=== PATIENT | female | born 1945 | race Caucasian/White ===

== ENCOUNTER 2023-04-05 14:47 | Emergency (ER) | payer MEDICARE, BC, SELFPAY ==
[2023-04-05] VITALS (10 sets, daily range): BP systolic 133–143; BP diastolic 61–71; PULSE 60–96; RESP 13–24; TEMP 36.6; O2SAT 96–99; BMI 20.8
--- NOTE | 2023-04-05 15:01 | ED_ITS ---
HPI - SOB/Dyspnea General Chief Complaint: Shortness of Breath/Dyspnea Stated Complaint: SHORTNESS OF BREATH Time Seen by Provider: 04/05/23 14:55 Source: patient Mode of arrival: walk-in Limitations: no limitations History of Present Illness HPI Narrative: this patient's here for evaluation of fatigue and malaise aches and pains cough right sided chest pain. Symptoms started yesterday. She's had two vaccines but no blisters for Covid. She doesn't know she is running a fever. She does not have nausea vomiting or diarrhea. Does not have a sore throat. She lives alone but is here with her daughter. He is not currently on any antibiotics. She does not have any sputum production yet. She is not using tobacco products. She has a history of some reactive airway disease and used her albuterol inhaler once today. Her vital signs are as noted here with no acute shortness of breath or hypoxemia noted. She took some Tylenol and the aches and pains went away. She's not been around anyone with Covid that she knows of. This document has been composed with a new electronic medical record and [employer] voice recognition system. This document may not fully inaccurately reflect the entirety of the patient encounter. Related Data Allergies Allergy/AdvReac Type Severity Reaction Status Date / Time amoxicillin [From Augmentin] Allergy Intermediate Verified 04/05/23 14:55 cephalexin [From Keflex] Allergy Intermediate Verified 04/05/23 14:55 clavulanic acid Allergy Intermediate Verified 04/05/23 14:55 [From Augmentin] diclofenac [From Voltaren] Allergy Intermediate Verified 04/05/23 14:55 fenoprofen [From Nalfon] Allergy Intermediate Verified 04/05/23 14:55 ketorolac [From Toradol] Allergy Intermediate Verified 04/05/23 14:55 NSAIDS (Non-Steroidal Allergy Intermediate Verified 04/05/23 14:55 Anti-Inflamma Penicillins Allergy Intermediate Verified 04/05/23 14:55 Sulfa (Sulfonamide Allergy Intermediate Verified 04/05/23 14:55 Antibiotics) Exam Narrative Exam Narrative: awake alert does not appear acutely ill. Vital signs are noted. She is a good historian. Constitutional skin is warm and dry she's not diaphoretic or clammy. HEENT shows no conjunctivitis no scleral icterus no pallor or evidence of anemia. Respiratory her lungs were clear with no wheezes rales or rhonchi. Cardiovascular shows no clicks rubs snaps or murmurs. Extremities show no edema or ropiness. There is good peripheral perfusion. Constitutional Vital Signs, click to edit/add: Last Vital Signs Temp 98 F 04/05/23 14:49 Pulse 91 H 04/05/23 16:10 Resp 17 04/05/23 16:10 BP 140/63 04/05/23 16:00 Pulse Ox 99 04/05/23 15:35 O2 Del Method Room Air 04/05/23 15:35 Course Vital Signs Vital signs: Vital Signs Temperature 98 F 04/05/23 14:49 Pulse Rate 60 04/05/23 14:49 Respiratory Rate 20 04/05/23 14:49 Blood Pressure 138/71 04/05/23 14:49 Pulse Oximetry 96 04/05/23 14:49 Oxygen Delivery Method Room Air 04/05/23 14:49 Temperature 98 F 04/05/23 14:49 Pulse Rate 91 H 04/05/23 16:10 Respiratory Rate 17 04/05/23 16:10 Blood Pressure 140/63 04/05/23 16:00 Pulse Oximetry 99 04/05/23 15:35 Oxygen Delivery Method Room Air 04/05/23 15:35 MDM - SOB/Dyspnea MDM Narrative Medical decision making narrative: the patient's chest x-ray was normal. Her respiratory panel is actually not negative for any acute pathogens as well. I believe she has a uncomplicated upper respiratory infection. She is to follow-up with her primary care doctor. Lab Data Labs: Lab Results 04/05/23 Range/Units 15:15 WBC 8.0 (4.0-11.0) 10^3/uL RBC 4.08 L (4.20-5.40) 10^6/uL Hgb 12.8 (12.0-16.0) g/dL Hct 37.8 (36.0-48.0) % MCV 92.6 (81.0-99.0) fL MCH 31.4 (26.7-34.0) pg MCHC 33.9 (29.9-35.2) g/dL RDW 12.7 (11.0-15.0) % Plt Count 233 (150-450) 10^3/uL MPV 10.2 (9.5-13.5) fL Neut % (Auto) 75.5 H (43.0-75.0) % Lymph % (Auto) 18.7 L (20.5-60.0) % [place] % (Auto) 4.7 (1.7-12.0) % Eos % (Auto) 0.2 L (0.9-7.0) % Baso % (Auto) 0.5 (0.2-2.0) % Neut # (Auto) 6.1 (1.4-6.5) 10^3/uL Lymph # (Auto) 1.5 (1.2-3.8) 10^3/uL [place] # (Auto) 0.4 (0.3-0.8) 10^3/uL Eos # (Auto) 0.0 (0.0-0.7) 10^3/uL Baso # (Auto) 0.0 (0.0-0.1) 10^3/uL Abs Immat Gran (auto) 0.03 (0.00-0.03) 10^3/uL Imm/Tot Granulo (auto) 0.4 (0.0-0.5) % D-Dimer 0.24 (<=0.59) mg/L FEU Sodium 138 (136-145) mmol/L Potassium 3.5 (3.5-5.1) mmol/L Chloride 106 (98-107) mmol/L Carbon Dioxide 24.6 (21.0-32.0) mmol/L Anion Gap 10.9 BUN 18.0 (7.0-18.0) mg/dL Creatinine 1.15 H (0.55-1.02) mg/dL Est GFR ( Amer) 55 L (>=60) Est GFR (Non-Af Amer) 46 L (>=60) BUN/Creatinine Ratio 15.7 Glucose 186 H (74-106) mg/dL Calcium 9.3 (8.5-10.1) mg/dL Total Bilirubin 0.4 (0.2-1.0) mg/dL AST 19 (15-37) U/L ALT 28 (14-59) U/L Alkaline Phosphatase 81 (46-116) U/L NT-Pro-B Natriuret Pep 272.0 (<=1800.0) pg/mL Total Protein 7.1 (6.4-8.2) g/dL Albumin 3.8 (3.4-5.0) g/dL Globulin 3.3 g/dL Albumin/Globulin Ratio 1.2 Adenovirus (PCR) Not detected (NOT DETECTE) C. pneumoniae DNA (PCR) Not detected (NOT DETECTE) Coronavirus Type OC43 Not detected (NOT DETECTE) Coronavirus Type HKU1 Not detected (NOT DETECTE) Coronavirus Type 229E Not detected (NOT DETECTE) Coronavirus Type NL63 Not detected (NOT DETECTE) Human Metapneumovir PCR Not detected (NOT DETECTE) M. pneumoniae (PCR) Not detected (NOT DETECTE) Parainfluenza PCR Not detected (NOT DETECTE) Parainfluenza 2 (PCR) Not detected (NOT DETECTE) Parainfluenza 3 (PCR) Not detected (NOT DETECTE) Parainfluenza 4 (PCR) Not detected (NOT DETECTE) RSV (RT-PCR) Not detected (NOT DETECTE) Entero/Rhino (PCR) Not detected (NOT DETECTE) SARS-CoV-2 (PCR) Not detected (NOT DETECTE) Bordetella pertussis (PCR) Not detected (NOT DETECTE) B parapertussis DNA PCR Not detected (NOT DETECTE) Influenza Type A (PCR) Not detected (NOT DETECTE) Influenza Type B (PCR) Not detected (NOT DETECTE) Discharge Plan Discharge Chief Complaint: Shortness of Breath/Dyspnea Clinical Impression: Acute upper respiratory infection Patient Disposition: Home, Self-Care Time of Disposition Decision: 17:00 Additional Instructions: may use Tylenol or ibuprofen for fever control. [id number] Mucinex. Follow up with primary care doctor in several days if not improved Stand Alone Forms: Portal Instructions Referrals: VERÓNICA HELLER [Primary Care Provider] - 1 week
--- NOTE | 2023-04-05 15:04 | XR_ITS ---
The [address] [address] Patient Name: ABIOLA VILLEGAS MRN: [id number] date: 1945 Sex: F Assigned Patient Location: ER Current Patient Location: ER Accession/Order Number: [id number] Exam Date: 04/05/2023 15:18 Report Date: 04/05/2023 15:30 At the request of: EMILIA THOMPSON Procedure: XR chest 1V EXAMINATION: XR chest 1V HISTORY: Chest pain COMPARISON: Portable chest 11/19/2022 TECHNIQUE: Portable chest FINDINGS: The lung parenchyma is free of consolidation or infiltrate. No pneumothorax or pleural effusion. The cardiac, mediastinal and hilar contours are normal. The visualized osseous structures exhibit no gross abnormality. XR/XR chest 1V IMPRESSION: No acute cardiopulmonary abnormality. Electronically authenticated by: COLLEEN OLIVAREZ Date: 04/05/2023 15:30
--- NOTE | 2023-04-05 15:04 | ECG_ITS ---
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
[2023-04-05 15:21] LABS: Adenovirus NOT DETECTED (NOT DETECTE); Bordetella parapertussis NOT DETECTED (NOT DETECTE); Coronavirus 229E NOT DETECTED (NOT DETECTE); Coronavirus HKU1 NOT DETECTED (NOT DETECTE); Coronavirus NL63 NOT DETECTED (NOT DETECTE); Coronavirus OC43 NOT DETECTED (NOT DETECTE); Human Metapneumovirus NOT DETECTED (NOT DETECTE); Human Rhinovirus/Enterovirus NOT DETECTED (NOT DETECTE); Influenza A NOT DETECTED (NOT DETECTE); Influenza B NOT DETECTED (NOT DETECTE); Mycoplasma pneumoniae NOT DETECTED (NOT DETECTE); Parainfluenza Virus 1 NOT DETECTED (NOT DETECTE); Parainfluenza Virus 2 NOT DETECTED (NOT DETECTE); Parainfluenza Virus 3 NOT DETECTED (NOT DETECTE); Parainfluenza Virus 4 NOT DETECTED (NOT DETECTE); Respiratory Syncytial Virus NOT DETECTED (NOT DETECTE); SARS-CoV-2 NOT DETECTED (NOT DETECTE)
[2023-04-05 15:22] LABS: Basophils Percent Auto 0.5 % (0.2-2.0); Eosinophils Percent Auto 0.2 % (0.9-7.0); Hematocrit 37.8 % (36.0-48.0); Hemoglobin 12.8 g/dL (12.0-16.0); Immature Granulocytes Abs Auto 0.03 10^3/uL (0.00-0.03); Immature Granulocytes Pct Auto 0.4 % (0.0-0.5); Lymphocytes Absolute Auto 1.5 10^3/uL (1.2-3.8); Lymphocytes Percent Auto 18.7 % (20.5-60.0); Mean Corpuscular HGB Conc 33.9 g/dL (29.9-35.2); Mean Corpuscular Hemoglobin 31.4 pg (26.7-34.0); Mean Corpuscular Volume 92.6 fL (81.0-99.0); Mean Platelet Volume 10.2 fL (9.5-13.5); Monocytes Absolute Auto 0.4 10^3/uL (0.3-0.8); Monocytes Percent Auto 4.7 % (1.7-12.0); Neutrophils Absolute Auto 6.1 10^3/uL (1.4-6.5); Neutrophils Percent Auto 75.5 % (43.0-75.0); Platelet Count 233 10^3/uL (150-450); Red Blood Count 4.08 10^6/uL (4.20-5.40); Red Cell Distribution Width 12.7 % (11.0-15.0)
[2023-04-05 15:35] LABS: Alanine Aminotransferase 28 U/L (14-59); Albumin Globulin Ratio 1.2; Albumin Level 3.8 g/dL (3.4-5.0); Alkaline Phosphatase 81 U/L (46-116); Anion Gap 10.9; Aspartate Amino Transferase 19 U/L (15-37); BUN Creatinine Ratio 15.7; Bilirubin Total 0.4 mg/dL (0.2-1.0); Calcium 9.3 mg/dL (8.5-10.1); Carbon Dioxide 24.6 mmol/L (21.0-32.0); Chloride 106 mmol/L (98-107); Estimated GFR (African America 55 (>=60); Estimated GFR (Non-African Ame 46 (>=60); Globulin 3.3 g/dL; Glucose 186 mg/dL (74-106); Potassium 3.5 mmol/L (3.5-5.1); Sodium 138 mmol/L (136-145); Total Protein 7.1 g/dL (6.4-8.2)
[2023-04-05] MEDS: IPRATROPIUM/ALBUTEROL SULFATE 3 ML AMPUL.NEB IH (15:35)
[2023-04-05 15:37] LABS: D Dimer 0.24 mg/L FEU (<=0.59)
== END 2023-04-05 17:17 | disposition home or self-care (01) ==
PROVIDERS: Emergency Provider Emergency Medicine Emergency Medical Services; PCP Internal Medicine
DX: J06.9 Acute upper respiratory infection, unspecified (principal); Z20.822 Contact with and (suspected) exposure to COVID-19; R06.02 Shortness of breath
CPT/HCPCS: 0202U; 36415; 71045; 80053; 83880; 85025; 85378; 93005; 94640; 99285

== ENCOUNTER 2024-03-27 10:19 | Emergency (ER) | payer MEDICARE, BC, SELFPAY ==
[2024-03-27 10:24] VITALS: BP 153/79; PULSE 97; TEMP 37.1; O2SAT 98; BMI 20.4
--- NOTE | 2024-03-27 10:36 | XR_ITS ---
The [address] [address] Patient Name: ABIOLA VILLEGAS MRN: [id number] date: 1945 Sex: F Assigned Patient Location: ED.MAIN Current Patient Location: ED.MAIN Accession/Order Number: [id number] Exam Date: 03/27/2024 11:15 Report Date: 03/27/2024 13:04 At the request of: GILMA DE JESUS Procedure: XR chest 1V EXAM: XR chest 1V 03/27/2024 COMPARISON STUDY: AP chest 04/05/2023. HISTORY: shortness of breath FINDINGS: The cardiomediastinal contours are stable. Heart size is top normal. No dense consolidation, effusion, edema, failure, pneumothorax or acute osseous change suspected in the interval. XR/XR chest 1V IMPRESSION: No acute cardiopulmonary process suspected in the interval. Electronically authenticated by: JOO FRASER Date: 03/27/2024 13:04
--- NOTE | 2024-03-27 10:43 | ECG_ITS ---
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
--- NOTE | 2024-03-27 10:45 | ED.GENADUL1 ---
HPI HPI - General Adult General Chief complaint: Weakness Stated complaint: SHORTNESS OF BREATH Time Seen by Provider: 03/27/24 10:23 Source: patient Mode of arrival: walk-in Limitations: no limitations Related Data Home Medications ?Medication ?Instructions ?Recorded ?Confirmed albuterol 90 mcg/actuation aerosol 90 mcg inhalation PRN PRN 03/27/24 03/27/24 inhaler shortness of breath fluticasone furoate 100 1 inh inhalation DAILY 03/27/24 03/27/24 mcg-vilanterol 25 mcg/dose inhalation powder (Breo Ellipta) Previous Rx's ?Medication ?Instructions ?Recorded doxycycline hyclate 100 mg capsule 100 mg PO BID 7 days #14 caps 03/27/24 Allergies Allergy/AdvReac Type Severity Reaction Status Date / Time amoxicillin [From Augmentin] Allergy Intermediate Verified 04/05/23 14:55 cephalexin [From Keflex] Allergy Intermediate Verified 04/05/23 14:55 clavulanic acid Allergy Intermediate Verified 04/05/23 14:55 [From Augmentin] diclofenac [From Voltaren] Allergy Intermediate Verified 04/05/23 14:55 fenoprofen [From Nalfon] Allergy Intermediate Verified 04/05/23 14:55 ketorolac [From Toradol] Allergy Intermediate Verified 04/05/23 14:55 NSAIDS (Non-Steroidal Allergy Intermediate Verified 04/05/23 14:55 Anti-Inflamma Penicillins Allergy Intermediate Verified 04/05/23 14:55 Sulfa (Sulfonamide Allergy Intermediate Verified 04/05/23 14:55 Antibiotics) Opioid HPI Opioid Management Most Recent Opioid Data: No Data to Display Exam Constitutional Vital Signs, click to edit/add: Last Vital Signs Temp 98.7 F 03/27/24 10:24 Pulse 97 H 03/27/24 10:24 Resp 18 03/27/24 10:24 BP 153/79 H 03/27/24 10:24 Pulse Ox 98 03/27/24 10:24 O2 Del Method Room Air 03/27/24 10:24 Course Vital Signs Vital signs: Vital Signs Temperature 98.7 F 03/27/24 10:24 Pulse Rate 97 H 03/27/24 10:24 Respiratory Rate 18 03/27/24 10:24 Blood Pressure 153/79 H 03/27/24 10:24 Pulse Oximetry 98 08/17/24 10:24 Oxygen Delivery Method Room Air 03/27/24 10:24 Temperature 98.7 F 03/27/24 10:24 Pulse Rate 97 H 03/27/24 10:24 Respiratory Rate 18 03/27/24 10:24 Blood Pressure 153/79 H 03/27/24 10:24 Pulse Oximetry 98 03/27/24 10:24 Oxygen Delivery Method Room Air 03/27/24 10:24 Medical Decision Making MDM Narrative Medical decision making narrative: Patient was placed on diagnostic cardiac sonographer and EKG obtained. Blood drawn and sent for evaluation, Including BNP, troponin. She received a liter of normal saline IV fluid. Swab for Covid was negative CXR was negative. Urine was obtained due to the patient's complaint of fatigue and that showed evidence of acute urinary tract infection. All results were explained to the patient and her accompanying family member. She was discharged home with a prescription for doxycycline. She was encouraged to see her PCP for follow-up or return to the emergency department if she worsens. Lab Data Lab results reviewed: Yes I reviewed the patient's lab results Labs: Lab Results 03/27/24 03/27/24 03/27/24 Range/Units 10:30 10:36 10:44 WBC 9.7 (4.0-11.0) 10^3/uL RBC 4.46 (4.20-5.40) 10^6/uL Hgb 13.8 (12.0-16.0) g/dL Hct 42.2 (36.0-48.0) % MCV 94.6 (81.0-99.0) fL MCH 30.9 (26.7-34.0) pg MCHC 32.7 (29.9-35.2) g/dL RDW 12.2 (11.0-15.0) % Plt Count 281 (150-450) 10^3/uL MPV 10.3 (9.5-13.5) fL Neut % (Auto) 62.3 (43.0-75.0) % Lymph % (Auto) 22.8 (20.5-60.0) % [place] % (Auto) 8.7 (1.7-12.0) % Eos % (Auto) 5.1 (0.9-7.0) % Baso % (Auto) 0.8 (0.2-2.0) % Neut # (Auto) 6.0 (1.4-6.5) 10^3/uL Lymph # (Auto) 2.2 (1.2-3.8) 10^3/uL [place] # (Auto) 0.8 (0.3-0.8) 10^3/uL Eos # (Auto) 0.5 (0.0-0.7) 10^3/uL Baso # (Auto) 0.1 (0.0-0.1) 10^3/uL Abs Immat Gran (auto) 0.03 (0.00-0.03) 10^3/uL Imm/Tot Granulo (auto) 0.3 (0.0-0.5) % Sodium 139 (136-145) mmol/L Potassium 3.6 (3.5-5.1) mmol/L Chloride 104 (98-107) mmol/L Carbon Dioxide 23.4 (21.0-32.0) mmol/L Anion Gap 15.2 BUN 12.0 (7.0-18.0) mg/dL Creatinine 1.02 (0.55-1.02) mg/dL Est GFR ( Amer) >60 (>=60) Est GFR (Non-Af Amer) 52 L (>=60) BUN/Creatinine Ratio 11.8 Glucose 108 H (74-106) mg/dL Calcium 9.6 (8.5-10.1) mg/dL Troponin I High Sens <4.0 L (4.0-51.3) pg/mL NT-Pro-B Natriuret Pep 213.0 (<=1800.0) pg/mL Urine Color Lt. yellow (YELLOW) Urine Clarity Clear (CLEAR) Urine pH 6.5 (5.0-9.0) Ur Specific [place] 1.010 (1.005-1.025) Urine Protein Negative (NEG/TRACE) mg/dL Urine Glucose (UA) Negative (NEGATIVE) mg/dL Urine Ketones Negative (NEGATIVE) mg/dL Urine Occult Blood Negative (NEGATIVE) Urine Nitrite Negative (NEGATIVE) Urine Bilirubin Negative (NEGATIVE) Urine Urobilinogen 0.2 (0.2-1.0) EU/dL Ur Leukocyte Esterase Small A (NEGATIVE) SARS-CoV-2 Ag (CV2AG) Negative (NEGATIVE) Imaging Data Chest x-ray: Attestation: I have reviewed the pertinent imaging results. My impression: The [address] [address] XRay Report Draft Patient: ABIOLA VILLEGAS MR#: [id number] : 1945 Acct:[id number] Age/Sex: 78 / F ADM Date: 03/27/24 Loc: ER Attending Dr: Ordering Physician: Delonte Sesay D.O. Date of Service: 03/27/24 Procedure(s): XR chest 1V Accession Number(s): [id number] cc: ~ The [address] [address] Patient Name: ABIOLA VILLEGAS MRN: [id number] date: 1945 Sex: F Assigned Patient Location: ED.MAIN Current Patient Location: ER Accession/Order Number: [id number] Exam Date: 03/27/2024 11:15 Report Date: 03/27/2024 12:44 At the request of: DELONTE SESAY Procedure: XR chest 1V EXAM: XR chest 1V 03/27/2024 COMPARISON STUDY: AP chest 04/05/2023. HISTORY: shortness of breath FINDINGS: The cardiomediastinal contours are stable. Heart size is top normal. No dense consolidation, effusion, edema, failure, pneumothorax or acute osseous change suspected in the interval. XR/XR chest 1V IMPRESSION: No acute cardiopulmonary process suspected in the interval. Electronically authenticated by: [employer] Date: 03/27/2024 12:44 Radiologist's impression: ITS Impressions Chest X-Ray 03/27/24 10:36 IMPRESSION: No acute cardiopulmonary process suspected in the interval. Electronically authenticated by: [employer] Date: 03/27/2024 12:44 ECG Data Attestation: I personally reviewed and interpreted this ECG as follows: Interpretation: EKG interpretation: Emergency Department physician interpretation. Normal sinus rhythm at 87bpm with occasional ventricular premature complexes. Normal axis, normal intervals and no ST segment elevation or depression. Discharge Plan Discharge Stand Alone Forms: Portal Instructions Chief Complaint: Weakness Clinical Impression: Acute UTI, Acute upper respiratory infection Patient Disposition: Home, Self-Care Time of Disposition Decision: 13:05 Prescriptions / Home Meds: New doxycycline hyclate 100 mg capsule 100 mg PO BID 7 Days Qty: 14 0RF No Action fluticasone furoate-vilanterol [Breo Ellipta] 100-25 mcg/dose blister with device 1 inh INHALATION DAILY albuterol 90 mcg/actuation aerosol 90 mcg inhalation PRN PRN (Reason: shortness of breath) Print Language: Portuguese Instructions: Upper Respiratory Infection (ED), Urinary Tract Infection in Older Adults (ED) Referrals: VERÓNICA HELLER [Primary Care Provider] - 1 week
[2024-03-27 10:48] LABS: Basophils Absolute Auto 0.1 10^3/uL (0.0-0.1); Basophils Percent Auto 0.8 % (0.2-2.0); Eosinophils Absolute Auto 0.5 10^3/uL (0.0-0.7); Eosinophils Percent Auto 5.1 % (0.9-7.0); Hematocrit 42.2 % (36.0-48.0); Hemoglobin 13.8 g/dL (12.0-16.0); Immature Granulocytes Abs Auto 0.03 10^3/uL (0.00-0.03); Immature Granulocytes Pct Auto 0.3 % (0.0-0.5); Lymphocytes Absolute Auto 2.2 10^3/uL (1.2-3.8); Lymphocytes Percent Auto 22.8 % (20.5-60.0); Mean Corpuscular HGB Conc 32.7 g/dL (29.9-35.2); Mean Corpuscular Hemoglobin 30.9 pg (26.7-34.0); Mean Corpuscular Volume 94.6 fL (81.0-99.0); Mean Platelet Volume 10.3 fL (9.5-13.5); Monocytes Absolute Auto 0.8 10^3/uL (0.3-0.8); Monocytes Percent Auto 8.7 % (1.7-12.0); Neutrophils Percent Auto 62.3 % (43.0-75.0); Platelet Count 281 10^3/uL (150-450); Red Blood Count 4.46 10^6/uL (4.20-5.40); Red Cell Distribution Width 12.2 % (11.0-15.0); White Blood Count 9.7 10^3/uL (4.0-11.0)
[2024-03-27] MEDS: 0.9 % SODIUM CHLORIDE 1,000 ML 999 ML IV (10:54)
[2024-03-27 11:01] LABS: Internal Control Within Normal Limits; SARS-CoV-2 Ag NEGATIVE (NEGATIVE)
[2024-03-27 11:02] VITALS: PULSE 82
[2024-03-27 11:19] LABS: Anion Gap 15.2; BUN Creatinine Ratio 11.8; Calcium 9.6 mg/dL (8.5-10.1); Carbon Dioxide 23.4 mmol/L (21.0-32.0); Chloride 104 mmol/L (98-107); Estimated GFR (African America >60 (>=60); Estimated GFR (Non-African Ame 52 (>=60); Glucose 108 mg/dL (74-106); Potassium 3.6 mmol/L (3.5-5.1); Sodium 139 mmol/L (136-145); Troponin I High Sensitivity <4.0 pg/mL (4.0-51.3)
[2024-03-27 12:54] LABS: Bilirubin Urine NEGATIVE (NEGATIVE); Blood Urine NEGATIVE (NEGATIVE); Clarity Urine CLEAR (CLEAR); Color Urine LT. YELLOW (YELLOW); Glucose Urine UA NEGATIVE (NEGATIVE); Ketones Urine NEGATIVE (NEGATIVE); Leukocyte Esterase Urine SMALL (NEGATIVE); Nitrite Urine NEGATIVE (NEGATIVE); Protein Urine NEGATIVE (NEG/TRACE); Urine Microscopic Indicated YES; Urobilinogen Urine 0.2 EU/dL (0.2-1.0); pH Urine 6.5 (5.0-9.0)
[2024-03-27 13:10] LABS: Bacteria Urine NONE SEEN #/HPF (NONE SEEN); Cast Seen? NONE SEEN #/LPF (NONE SEEN); Crystals Seen? None Seen #/HPF (None Seen); Mucus Urine NONE SEEN (NONE SEEN); RBC Urine 0-2 #/HPF (0-2); Squamous Epithelial Cell Urine RARE #/LPF (NONE/RARE)
[2024-03-27 13:11] LABS: Urine Culture Indicated YES
== END 2024-03-27 13:35 | disposition home or self-care (01) ==
PROVIDERS: Emergency Provider Emergency Medicine; PCP Internal Medicine
DX: J06.9 Acute upper respiratory infection, unspecified (principal); N39.0 Urinary tract infection, site not specified; Z20.822 Contact with and (suspected) exposure to COVID-19
CPT/HCPCS: 36415; 71045; 80048; 81001; 83880; 84484; 85025; 87086; 87811; 93005; 99285

== ENCOUNTER 2024-08-13 10:06 | Outpatient (OUT) | payer MEDICARE, BC, SELFPAY ==
--- OUTSIDE RECORDS SUMMARY | 2024-08-13 10:10 | XMS_ITS | CCD ---
Author Organization [facility] Care Team Providers Care Distributing Clerk Name Role Phone DR SONAM TYLER Consulting Unavailable DIAB ., JOHANNA Admitting Unavailable DIAB ., JOHANNA Attending Unavailable ARRON, DR SANCHES Primary Care Unavailable GRECHNY ., JOEY BRITTON Consulting Unavailabl e DIAB ., JOHANNA Admitting Unavailable DIAB ., JOHANNA Consulting Unavailable DIAB ., JOHANNA Attending Unavailable ARRON, DR SANCHES Primary Care Unavailable ARRON, DR SANCHES Primary Care Unavailable JOCELYNN CHRISTINE Admitting Unavailable JOCELYNN CHRISTINE Attending Unavailable LIZA ., DR DILLARD Consulting Unavailable KELLY ZAVALA Consulting Unavailable ARRON, DR SANCHES Primary Care Unavailable TIMMIS, DR MACE Admitting Unavailable TIMMIS, DR MACE Consulting Unavailable TIMMIS, DR MACE Attending Unavailable ROBERT DELATORRE Consulting Unavailable ARRON, DR SANCHES Primary Care Unavailable SANJUANA LORENZO Admitting Unavailable SANJUANA LORENZO Attending Unavailable NAYELI, DR SONAM Velez Consulting Unavailable SARA GONZALES Consulting Unavailable SANJUANA LORENZO Consulting Unavailable EMMANUEL Da Silva Primary Care Provider MD Sara Gonzales Attending Provider EMMANUEL Da Silva Primary Care Provider MD Sara Gonzales Attending Provider [phone] MD Sara Gonzales Referring Provider [phone] MD Sara Gonzales Attending Provider JAE Lorenzo Primary Care Provider MD Sara Gonzales Referring Provider [phone] Sara Gonzales Attending Unavailable Tal D aSilva Primary Care Unavailable Sara Gonzales Admitting Unavailable Sara Gonzales Attending Unavailable Sanjuana Lorenzo Primary Care Unavailable Sara Gonzales Admitting Unavailable Tal Da Silva MD Unavailable Tal Da Silva MD Primary Care Provider SANJUANA LORENZO Attending Unavailable SANJUANA LORENZO Attending Unavailable SANJUANA LORENZO Attending Unavailable Allergies Allergy Classification Reported Allergen(s) Allergy Type Date of Onset Reaction(s) Facility (1 source) Amoxicillin / Clavulanate Drug Allergy [facility] (1 source) Apomorphine Drug Allergy [facility] (1 source) Cephalexin Drug Allergy [facility] (1 source) Diclofenac Drug Allergy [facility] (4 sources) Erythromycin Drug Allergy 023 Gastrointestinal Upset [facility] (1 source) Fenoprofen Drug Allergy [facility] (1 source) methylPREDNISolone Drug Allergy [facility] (1 source) methylPREDNISolone Drug Allergy [facility] (1 source) Nitrofurantoin Drug Allergy [facility] (1 source) Penicillin Drug Allergy [facility] (1 source) Sulfonamides (Antibiotic) Drug allergy (disorder) [facility] (4 sources) Tropicamide Drug Allergy 023 [facility] (3 sources) Amoxicillin Drug Allergy 023 Joint [facility] (10 sources) Cephalexin Drug Allergy 023 Unknown [facility] (3 sources) Clavulanate Drug Allergy 023 Joint Pain [facility] (3 sources) Diclofenac Drug Allergy 023 [facility] (3 sources) Fenoprofen Drug Allergy 023 [facility] (10 sources) methylPREDNISolone Drug Allergy 023 Difficulty Breathing [facility] (3 sources) Nitrofurantoin Drug Allergy 023 Nausea [facility] (3 sources) Penicillins Allergy to substance 023 [facility] (3 sources) Sulfonamides (Antibiotic) Allergy to substance 023 Nausea [facility] (3 sources) cortizone injection Allergy to substance 023 Difficulty Breathing [facility] (3 sources) novafed Allergy to substance Difficulty Breathing [facility] (7 sources) Penicillin G Drug Allergy Hives, Rash [facility] (7 sources) Sulfonamides (Antibiotic) Drug Allergy [facility] Medications Current Medications Medication Drug Class(es) Dates Sig (Normalized) Sig (Original) [id number] 200 actuat albuterol 0.09 mg/actuat metered dose inhaler (7 sources) beta2-Adrenergi c Agonist Start: 07-29-2023 End: 07-28-2024 take 2 puff(s) by inhalation every four hours for wheezing albuterol HFA 90 mcg/act inhaler Indications: Mild intermittent asthma without complication (CMS/HCC) Inhale 2 puffs every 4 (four) hours if needed for wheezing 18 g 5 07/29/2023 07/28/2024 Active cholecalciferol 0.025 mg oral capsule (3 sources) Vitamin D take 1 capsule by mouth once daily cholecalciferol (Vitamin D-3) 25 MCG (1000 UT) capsule Take 1 capsule by mouth Daily Active 1 ml denosumab 60 mg/ml prefilled syringe (3 sources) RANK Ligand Inhibitor inject 60 mg by subcutaneous injection once denosumab (Prolia) 60 MG/ML solution prefilled syringe Inject 60 mg under the skin 1 (one) time Active doxycycline hyclate 100 mg oral capsule (3 sources) Tetracycline-cl ass Drug Start: 03-27-2024 End: 04-02-2024 take 1 capsule by mouth in the morning doxycycline (Vibramycin) 100 MG capsule Take 100 mg by mouth in the morning and 100 mg before bedtime. 03/27/2024 04/02/2024 Active 14 actuat fluticasone furoate 0.1 mg/actuat / vilanterol 0.025 mg/actuat dry powder inhaler (9 sources) Corticosteroid, beta2-Adrenergi c Agonist Start: 03-23-2024 End: 07-26-2024 take 1 puff(s) by inhalation once daily Fluticasone Furoate-Vilanterol (Breo Ellipta) 100-25 MCG/ACT aerosol powder Indications: Mild intermittent asthma without complication (CMS/HCC) Inhale 1 puff Daily 3 each 3 07/26/2024 Active 12 hr guaiFENesin 600 mg extended release oral tablet (5 sources) take 1 tablet by mouth in the morning, then take 1 tablet by mouth every twelve hours at bedtime guaiFENesin (Mucinex) 600 MG 12 hr tablet Take 1,200 mg by mouth in the morning and 1,200 mg before bedtime. Do not crush, chew, or split.. Active lutein 20 mg oral tablet (7 sources) take 1 tablet by mouth in the morning Lutein 20 MG tablet Take 1 tablet by mouth in the morning. Active Multiple Vitamin (multivitamin) capsule (7 sources) take 1 capsule by mouth in the morning Multiple Vitamin (multivitamin) capsule Take 1 capsule by mouth in the morning. Active predniSONE 10 mg oral tablet (2 sources) Start: 03-31-2024 End: 04-09-2024 take 1 tablet by mouth twice daily, then take 1 tablet by mouth once daily at mealtime predniSONE (Deltasone) 10 MG tablet Indications: Acute bronchitis, unspecified organism Take 1 tablet (10 mg) by mouth 2 (two) times a day for 5 days, THEN 1 tablet (10 mg) Daily for 5 days. Take with food. 15 tablet 03/31/2024 04/09/2024 Active saccharomyces boulardii 250 mg oral capsule (5 sources) take 1 capsule by mouth once daily saccharomyces boulardii (Florastor) 250 MG capsule Take 250 mg by mouth 1 (one) time each day Active Problems Active Problems Problem Classification Problem Date Documented Date Episodic/Chronic Administrative/socia l admission (2 sources) Patient encounter status; Translations: [Other specified counseling] 07-26-2024 Episodic Anxiety disorders (1 source) Anxiety disorder, unspecified; Translations: [ANXIETY DISORDER UNSPECIFIED] Onset: 11-21-2022 Chronic Asthma (12 sources) Unspecified asthma, uncomplicated; Translations: [Mild intermittent asthma] Onset: 02-28-2022 01-23-2023 Chronic Cardiac dysrhythmias (9 sources) ECG: premature ventricular contractions; Translations: [Ventricular premature depolarization] Onset: 02-17-2023 02-17-2023 Chronic Chronic kidney disease (9 sources) Chronic kidney disease stage 3; Translations: [Stage 3 chronic kidney disease (HCC)] Onset: 11-03-2018 07-22-2023 Chronic Diabetes mellitus without complication (4 sources) Impaired fasting glycemia; Translations: [Impaired fasting glucose] Onset: 07-26-2024 07-26-2024 Episodic Disorders of lipid metabolism (10 sources) Pure hypercholesterolemia, unspecified; Translations: [Mixed hyperlipidemia] Onset: 02-28-2022 02-17-2023 Chronic Esophageal disorders (9 sources) Gastroesophageal reflux disease without esophagitis; Translations: [Gastro-esophageal reflux disease without esophagitis] Onset: 02-17-2023 02-17-2023 Chronic Malaise and fatigue (4 sources) Weakness; Translations: [WEAKNESS] Onset: 11-19-2022 Episodic Menopausal disorders (13 sources) Other primary ovarian failure; Translations: [Primary ovarian failure] Onset: 07-31-2022 Chronic Nausea and vomiting (2 sources) Nausea; Translations: [Nausea with vomiting, unspecified] Onset: 02-28-2022 Episodic Nutritional deficiencies (9 sources) Vitamin D deficiency; Translations: [Vitamin D deficiency, unspecified] Onset: 02-17-2023 02-17-2023 Chronic Osteoarthritis (1 source) Unspecified osteoarthritis, unspecified site; Translations: [UNSPECIFIED OSTEOARTHRITIS UNS SITE] Onset: 02-28-2022 Chronic Osteoporosis (17 sources) Age-related osteoporosis without current pathological fracture; Translations: [Senile osteoporosis] Onset: 05-19-2015 Resolved: 07-22-2023 02-17-2023 Chronic Other aftercare (1 source) Other custodial (current) drug therapy; Translations: [OTH RESERVOIR ENGINEERING MANAGER CURRENT DRUG THERAPY] Onset: 11-21-2022 Episodic Other and unspecified benign neoplasm (9 sources) Polyp of colon; Translations: [Polyp of colon] Onset: 02-17-2023 02-17-2023 Episodic Other ear and sense organ disorders (1 source) Sensorineural hearing loss, bilateral; Translations: [SENSORINEURAL HEAR LOSS BILATERAL] Onset: 10-14-2022 Chronic Other ear and sense organ disorders (9 sources) Sensorineural hearing loss, bilateral; Translations: [Sensorineural hearing loss, bilateral] Onset: 02-17-2023 02-17-2023 Chronic Other ear and sense organ disorders (4 sources) Tinnitus, bilateral; Translations: [TINNITUS BILATERAL] Onset: 10-10-2022 Episodic Other ear and sense organ disorders (9 sources) Bilateral tinnitus; Translations: [Tinnitus, bilateral] Onset: 02-17-2023 02-17-2023 Episodic Other nervous system disorders (9 sources) Chronic pain; Translations: [Other chronic pain] Onset: 02-17-2023 02-17-2023 Chronic Other nervous system disorders (1 source) Tremor, unspecified; Translations: [TREMOR UNSPECIFIED] Onset: 11-21-2022 Episodic Other skin disorders (3 sources) Rash and other nonspecific skin eruption; Translations: [RASH OTH NONSPECIFIC SKIN ERUPTION] Onset: 11-17-2022 Episodic Spondylosis; intervertebral disc disorders; other back problems (11 sources) Low back pain; Translations: [Low back pain, unspecified] Onset: 02-17-2023 02-17-2023 Episodic Unclassified (1 source) CONTACT W/AND (SUSP) EXPOS COVID-19; Translations: [CONTACT W/AND (SUSP) EXPOS COVID-19] Onset: 02-28-2022 Viral infection (2 sources) Zoster without complications; Translations: [ZOSTER WITHOUT COMPLICATIONS] Onset: 11-18-2022 Episodic Past or Other Problems Problem Classification Problem Date Documented Da te Episodic/Chronic Acute bronchitis (2 sources) Acute bronchitis; Translations: [Acute bronchitis, unspecified] 03-31-2024 Episodic Conditions associated with dizziness or vertigo (11 sources) Dizziness and giddiness; Translations: [Dizziness] Onset: 02-26-2022 Resolved: 07-26-2024 Episodic Genitourinary symptoms and ill-defined conditions (2 sources) Abnormal urinalysis; Translations: [Unspecified abnormal findings in urine] 03-31-2024 Episodic Mood disorders (7 sources) Mood disorders Onset: 07-22-2023 Resolved: 07-26-2024 07-22-2023 Other lower respiratory disease (2 sources) Dyspnea; Translations: [Shortness of breath] 03-31-2024 Episodic Other upper respiratory infections (2 sources) Upper respiratory infection; Translations: [Acute upper respiratory infection, unspecified] 03-31-2024 Episodic Results Test Name Value Interpretation Reference Range Facility CBC (INCLUDES DIFF/PLT)on Basophils (Bld) [#/Vol] 0.033 10*3/uL Normal 0-200 [facility] Comment on above: Performed By: #### 1 023, 6399 #### [facility] [address] [place], [place] [id number] Water Jet Operator: Nydia Lancaster #### 7600 #### [facility] [address], [address] [place] [address] Water [employer] Operator: Sorin Turner MD Basophils/100 WBC (Bld) 0.5 % Normal [facility] Comment on above: Performed By: #### 1 0231, 6399 #### [facility] [address] [place] [address] Water Jet Operator: Nydia Lancaster #### 7600 #### [facility] [address], [address] [place] [address] Water Jet Operator: Sorin Turner MD Eosinophils (Bld) [#/Vol] 0.15 10*3/uL Normal 15-500 [facility] Comment on above: Performed By: #### 1 230, 6399 #### [facility] [address] [place] [address] Water Jet Operator: Nydia Lancaster #### 7600 #### [facility] [place] [address] Water Jet Operator: Sorin Turner MD Eosinophils/100 WBC (Bld) 2.3 % Normal [facility] Comment on above: Performed By: #### 1 230, 6399 #### [facility] [address] [place] [address] Water Jet Operator: Nydia Lancaster #### 7600 #### [facility] [address], [address] [place] [address] Water Jet Operator: Sorin Turner MD Erythrocyte distribution width (RBC) [Ratio] 12.4 % Normal 11.0-15.0 [facility] Comment on above: Performed By: #### 1 023, 6399 #### [facility] [address] [place] [address] Water Jet Operator: Nydia Lancaster #### 7600 #### [facility] [place] [address] [place] , [address] [place] [address] Water Jet Operator: Sorin Turner MD Hematocrit (Bld) [Volume fraction] 41.3 % Normal 35.0-45.0 [facility] Comment on above: Performed By: #### 1 0231, 6399 #### [facility] [address] [place] [address] Water Jet Operator: Nydia Lancaster #### 7600 #### [facility] [place] [address] [place] , [address] [place] [address] Water Jet Operator: Sorin Turner MD Hemoglobin (Bld) [Mass/Vol] 13.7 g/dL Normal 11.7-15.5 [facility] Comment on above: Performed By: #### 1 0231, 6399 #### [facility] [address] [place], [place] [id number] Water Jet Operator: Nydia Lancaster #### 7600 #### [facility] [place] [address] [place] , [address] [place] [address] Water Jet Operator: Sorin Turner MD Lymphocytes (Bld) [#/Vol] 2.457 10*3/uL Normal 850-3900 [facility] Comment on above: Performed By: #### 1 0231, 6399 #### [facility] [address] [place] [address] Water Jet Operator: Nydia Lancaster #### 7600 #### [facility] [place] [address], [address] [place] [address] Water Jet Operator: Sorin Turner MD Lymphocytes/100 WBC (Bld) 37.8 % Normal [facility] Comment on above: Performed By: #### 1 0231, 6399 #### [facility] [address] [place] [address] Water Jet Operator: Nydia Lancaster #### 7600 #### [facility] [place] [address] [place] , [address] [place] [address] Water Jet Operator: Sorin Turner MD MCH (RBC) [Entitic mass] 30.7 pg Normal 27.0-33.0 [facility] Comment on above: Performed By: #### 1 230, 6399 #### [facility] [address] [place] [address] Water Jet Operator: Nydia Lancaster #### 7600 #### [facility] [address], [address] [place] [address] Water Jet Operator: Sorin Turner MD MCHC (RBC) [Mass/Vol] 33.2 g/dL Normal 32.0-36.[address] [facility] Comment on above: Result Comment: For adults, a slight decrease in the calculated MCHC value (in the range of 30 to 32 g/dL) is most likely not clinically significant; however, it should be interpreted with caution in correlation with other red cell parameters and the patient's clinical condition. Performed By: #### 1 230, 6399 #### [facility] [address] [place] [address] Water Jet Operator: Nydia Lancaster #### 7600 #### [facility] [address], [address] [place] [address] Water Jet Operator: Sorin Turner MD MCV (RBC) [Entitic vol] 92.6 fL Normal 80.0-100.0 [facility] Comment on above: Performed By: #### 1 230, 6399 #### [facility] [address] [place] [address] Water Jet Operator: Nydia Lancaster #### 7600 #### [facility] [address], [address] [place] [address] Water Jet Operator: Sorin Turner MD Monocytes (Bld) [#/Vol] 0.553 10*3/uL Normal 200-950 [facility] Comment on above: Performed By: #### 1 230, 6399 #### [facility] [address] [place] [address] Water Jet Operator: Nydia Lancaster #### 7600 #### [facility] [place] [address] [place] , [address] [place], [place] [id number] Water Jet Operator: Sorin Turner MD Monocytes/100 WBC (Bld) 8.5 % Normal [facility] Comment on above: Performed By: #### 1 0231, 6399 #### [facility] [address] [place], [place] [id number] Water Jet Operator: Nydia Lancaster #### 7600 #### [facility] [place] [address] [place] , [address] [place], [place] [id number] Water Jet Operator: Sorin Turner MD Neutrophils (Bld) [#/Vol] 3.309 10*3/uL Normal 3462-3018 [facility] Comment on above: Performed By: #### 1 0231, 6399 #### [facility] [address] [place] [address] Water Jet Operator: Nydia Lancaster #### 7600 #### [facility] [place] [address] [place] , [address] [place], [place] [id number] Water Jet Operator: Sorin Turner MD Neutrophils/100 WBC (Bld) 50.9 % Normal [facility] Comment on above: Performed By: #### 1 0231, 6399 #### [facility] [address] [place], [place] [id number] Water Jet Operator: Nydia Lancaster #### 7600 #### [facility] [place] [address] [place] , [address] [place] [address] Water Jet Operator: Sorin Turner MD Platelet mean volume (Bld) [Entitic vol] 10.7 fL Normal 7.5-12.5 [facility] Comment on above: Performed By: #### 1 0231, 6399 #### [facility] [address] [place] [address] Water Jet Operator: Nydia Lancaster #### 7600 #### [facility] [place] [address] [place] , [address] [place] [address] Water Jet Operator: Sorin Turner MD Platelets (Bld) [#/Vol] 250 10*3/uL Normal 140-400 [facility] Comment on above: Performed By: #### 1 0231, 6399 #### [facility] [address] [place] [address] Water Jet Operator: Nydia Lancaster #### 7600 #### [facility] [place] [address] [place] , [address] [place] [address] Water Jet Operator: Sorin Turner MD RBC (Bld) [#/Vol] 4.46 10*6/uL Normal 3.80-5.10 [facility] Comment on above: Performed By: #### 1 0231, 6399 #### [facility] [address] [place] [address] Water Jet Operator: Nydia Lancaster #### 7600 #### [facility] [address], [address] [place] [address] Water Jet Operator: Sorin Turner MD WBC (Bld) [#/Vol] 6.5 10*3/uL Normal 3.8-10.8 [facility] Comment on above: Performed By: #### 1 0231, 6399 #### [facility] [address] Water Jet Operator: Nydia Lancaster #### 7600 #### [facility] [place] [address] [place] , [address] [place] [address] Water Jet Operator: Sorin Turner MD [facility] 07-29-2024 Albumin [Mass/Vol] 3.9 g/dL Normal 3.6-5.1 [facility] Comment on above: Performed By: #### 1 0231, 6399 #### [facility] [address] [place] [address] Water Jet Operator: Nydia Lancaster #### 7600 #### [facility] [place] [address] [place] , [address] [place] [address] Water Jet Operator: Sorin Turner MD Albumin/Globulin [Mass ratio] 1.5 {ratio} Normal 1.0-2.5 [facility] Comment on above: Performed By: #### 1 0231, 6399 #### [facility] [address] Water Jet Operator: Nydia Lancaster #### 7600 #### [facility] [address], [address] [place] [address] Water Jet Operator: Sorin Turner MD ALP [Catalytic activity/Vol] 60 U/L Normal 37-153 [facility] Comment on above: Performed By: #### 1 0231, 6399 #### [facility] [address] Water Jet Operator: Nydia Lancaster #### 7600 #### [facility] [address], [address] [place] [address] Water Jet Operator: Sorin Turner MD ALT [Catalytic activity/Vol] 17 U/L Normal 6-29 [facility] Comment on above: Performed By: #### 1 0231, 6399 #### [facility] [address] Water Jet Operator: Nydia Lancaster #### 7600 #### [facility] [address], [address] [place] [address] Water Jet Operator: Sorin Turner MD AST [Catalytic activity/Vol] 20 U/L Normal 10-35 [facility] Comment on above: Performed By: #### 1 0231, 6399 #### [facility] [address] [place] [address] Water Jet Operator: Nydia Lancaster #### 7600 #### [facility] [address], [address] [place] [address] Water Jet Operator: Sorin Turner MD Bilirubin [Mass/Vol] 0.7 mg/dL Normal 0.2-1.2 [facility] Comment on above: Performed By: #### 1 0231, 6399 #### [facility] [address] [place], [place] [id number] Water Jet Operator: Nydia Lancaster #### 7600 #### [facility] [address], [address] [place] [address] Water Jet Operator: Sorin Turner MD BUN/CREATININE RATIO SEE NOTE: Normal 6-22 [facility] Comment on above: Result Comment: Not Reported: BUN and Creatinine are within reference range. Performed By: #### 1 230, 6399 #### [facility] [address] [place], [place] [id number] Water Jet Operator: Nydia Lancaster #### 7600 #### [facility] [address], [address] [place] [address] Water Jet Operator: Sorin Turner MD Calcium [Mass/Vol] 9.2 mg/dL Normal 8.6-10.4 [facility] Comment on above: Performed By: #### 1 230, 6399 #### [facility] [address] [place] [address] Water Jet Operator: Nydia Lancaster #### 7600 #### [facility] [address], [address] [place] [address] Water Jet Operator: Sorin Turner MD Chloride [Moles/Vol] 107 mmol/L Normal 98-110 [facility] Comment on above: Performed By: #### 1 230, 6399 #### [facility] [address] [place] [address] Water Jet Operator: Nydia Lancaster #### 7600 #### [facility] [address], [address] [place] [address] Water Jet Operator: Sorin Turner MD CO2 [Moles/Vol] 29 mmol/L Normal 20-32 [facility] Comment on above: Performed By: #### 1 230, 6399 #### [facility] [address] [place] [address] Water Jet Operator: Nydia Lancaster #### 7600 #### [facility] [address], [address] [place], [place] [id number] Water Jet Operator: Sorin Turner MD Creatinine [Mass/Vol] 0.95 mg/dL Normal 0.60-0.[address] [facility] Comment on above: Performed By: #### 1 0231, 6399 #### [facility] [address] [place] [address] Water Jet Operator: Nydia Lancaster #### 7600 #### [facility] [address], [address] [place] [address] Water Jet Operator: Sorin Turner MD GFR/1.73 sq M.predicted among non-blacks MDRD (S/P/Bld) [Vol rate/Area] 61 mL/min/{1.73_m2} Normal > OR = 60 [facility] Comment on above: Performed By: #### 1 230, 6399 #### [facility] [address] [place] [address] Water Jet Operator: Nydia Lancaster #### 7600 #### [facility] [address], [address] [place] [address] Water Jet Operator: Sorin Turner MD Globulin (S) [Mass/Vol] 2.6 g/dL Normal 1.9-3.7 [facility] Comment on above: Performed By: #### 1 230, 6399 #### [facility] [address] [place] [address] Water Jet Operator: Nydia Lancaster #### 7600 #### [facility] [address], [address] [place], [place] [id number] Water Jet Operator: Sorin Turner MD Glucose [Mass/Vol] 86 mg/dL Normal 65-99 [facility] Comment on above: Result Comment: Fasting reference interval Performed By: #### 1 023, 6399 #### [facility] [address] [place] [address] Water Jet Operator: Nydia Lancaster #### 7600 #### [facility] [address] [place] , [address] [place] [address] Water Jet Operator: Sorin Turner MD Potassium [Moles/Vol] 4.3 mmol/L Normal 3.5-5.[address] [facility] Comment on above: Performed By: #### 1 0231, 6399 #### [facility] [address] [place] [address] Water Jet Operator: Nydia Lancaster #### 7600 #### [facility] [place] [address] [place] , [address] [place] [address] Water Jet Operator: Sorin Turner MD Protein [Mass/Vol] 6.5 g/dL Normal 6.1-8.1 [facility] Comment on above: Performed By: #### 1 0231, 6399 #### [facility] [address] [place] [address] Water Jet Operator: Nydia Lancaster #### 7600 #### [facility] [place] [address] [place] , [address] [place] [address] Water Jet Operator: Sorin Turner MD Sodium [Moles/Vol] 142 mmol/L Normal 135-146 [facility] Comment on above: Performed By: #### 1 0231, 6399 #### [facility] [address] [place] [address] Water Jet Operator: Nydia Lancaster #### 7600 #### [facility] [place] [address] [place] , [address] [place] [address] Water Jet Operator: Sorin Turner MD Urea nitrogen [Mass/Vol] 14 mg/dL Normal 7-25 [facility] Comment on above: Performed By: #### 1 0231, 6399 #### [facility] [address] [place] [address] Water Jet Operator: Nydia Lancaster #### 7600 #### [facility] [address], [address] [place] [address] Water Jet Operator: Sorin Turner MD LIPID PANEL, [facility] 12-1 Cholesterol [Mass/Vol] 201 mg/dL High <200 [facility] Comment on above: Order Comment: FASTI NG:YES FASTING: YES Performed By: #### 1 0231, 6399 #### [facility] [address] [place] [phone] Water Jet Operator: Nydia Lancaster #### 7600 #### [facility] [address], [address] [place] [address] Water Jet Operator: Sorin Turner MD Cholesterol in HDL [Mass/Vol] 86 mg/dL Normal > OR = 50 [facility] Comment on above: Order Comment: FASTI NG:YES FASTING: YES Performed By: #### 1 0231, 6399 #### [facility] [address] [place] [phone] Water Jet Operator: Nydia Lancaster #### 7600 #### [facility] [address], [address] [place], [place] [id number] Water Jet Operator: Sorin Turner MD Cholesterol in LDL [Mass/Vol] 100 mg/dL High [facility] Comment on above: Order Comment: FASTI NG:YES FASTING: YES Result Comment: Refe rence range: <100 Desirable range <100 mg/dL for primary prevention; <70 mg/dL for patients with CHD or diabetic patients with > or = 2 CHD risk factors. LDL-C is now calculated using the Yessy calculation, which is a validated novel method providing better accuracy than the Friedewald equation in the estimation of LDL-C. Jacob HERRERA et al. JEFFREY. 2013;310(19): 7678-2158 (http://education.[employer].Paxata/faq/CLI231) Performed By: #### 1 0231, 6381 #### [facility] [address] [place] [phone] Water Jet Operator: Nydia Lancaster #### 5280 #### [facility] [address], [address] [place], [place] [phone] Water Jet Operator: Sorin Turner MD Cholesterol.total/Choles terol in HDL [Mass ratio] 2.3 {ratio} Normal <5.0 [facility] Comment on above: Order Comment: FASTI NG:YES FASTING: YES Performed By: #### 1 0231, 6399 #### [facility] [address] [place] [address] Water Jet Operator: Nydia Lancaster #### 7600 #### [facility] [address], [address] [place] [address] Water Jet Operator: Sorin Turner MD NON HDL CHOLESTEROL 115 mg/dL (calc) Normal <130 [facility] Comment on above: Order Comment: FASTI NG:YES FASTING: YES Result Comment: For patients with diabetes plus 1 major ASCVD risk factor, treating to a non-HDL-C goal of <100 mg/dL (LDL-C of <70 mg/dL) is considered a therapeutic option. Performed By: #### 1 230, 6399 #### [facility] [address] [place] [address] Water Jet Operator: Nydia Lancaster #### 7600 #### [facility] [address], [address] [place] [address] Water Jet Operator: Sorin Turner MD Triglyceride [Mass/Vol] 65 mg/dL Normal <150 [facility] Comment on above: Order Comment: FASTI NG:YES FASTING: YES Performed By: #### 1 230, 6399 #### [facility] [address] [place] [address] Water Jet Operator: Nydia Lancaster #### 7600 #### [facility] [address], [address] [place] [address] Water Jet Operator: Sorin Turner MD VITAMIN D,25-OH,TOTAL,IAon 1 09-29-2023 VITAMIN D,25-OH,TOTAL,IA 58 ng/mL Normal 30-100 [facility] Comment on above: Result Comment: Ann min D Status 25-OH Vitamin D: Deficiency: <20 ng/mL Insufficiency: 20 - 29 ng/mL Optimal: > or = 30 ng/mL For 25-OH Vitamin D testing on patients on D2-supplementation and patients for whom quantitation of D2 and D3 fractions is required, the QuestAssureD(TM) 25-OH VIT D, (D2,D3), LC/MS/MS is recommended: order code 94170 (patients >2yrs). See Note 1 Note 1 For additional information, please refer to http://education.[employer].Paxata/faq/YDI158 (This link is being provided for informational/ educational purposes only.) Performed By: #### 1 0231, 6399 #### [facility] [address] [place] [address] Water Jet Operator: Nydia Lancaster #### 7600 #### [facility] [address] [place] [address], [address] [place] [phone] Water Jet Operator: Sorin Turner MD Laboratory - Hematology and Cell countson 07-26-2024 HbA1c (Bld) [Mass fraction] 5 % [facility] No Panel Informationon 07-26 [facility] Albumin [Mass/volume] in Ser um or Plasma by Bromocresol green (BCG) dye binding methoOrdered By: Sara Gonzales on 04-27-2024 Albumin BCG dye [Mass/Vol] 3.9 g/dL 3.5-5.7 [facility] Calcium [Mass/volume] in Ser um or PlasmaOrdered By: Sara Gonzales on 04-27-2024 Calcium [Mass/Vol] 9.3 mg/dL Normal 8.6-10.3 [facility] Comment on above: Performed By: #### R ENAL, [id number] #### [facility] [address] [place] [address] [facility] Carbon dioxide, total [Moles /volume] in Serum or PlasmaOrdered By: Sara Gonzales on 04-27-2024 CO2 [Moles/Vol] 27.6 mmol/L Normal 21.0-31.0 [facility] Comment on above: Performed By: #### R ENAL, [id number] #### [facility] [address] [place] [address] [place] Chloride [Moles/volume] in S benton or PlasmaOrdered By: Sara Gonzales on 04-27-2024 Chloride [Moles/Vol] 107 mmol/L Normal 98-107 [facility] Comment on above: Performed By: #### R JONI [id number] #### [facility] [address] Creatinine [Mass/volume] in Serum or PlasmaOrdered By: Sara Gonzales on 04-27-2024 Creatinine [Mass/Vol] 0.93 mg/dL Normal 0.60-1.20 [facility] Comment on above: Performed By: #### R JONI [id number] #### [address] Glucose [Mass/volume] in Ser um or PlasmaOrdered By: Sara Gonzales on 04-27-2024 Glucose [Mass/Vol] 134 mg/dL High 70-100 [facility] Comment on above: ADA recommended refe rence rangeRandom Glucose Reference Range is dependent on time and content of last meal. Glucose of more than 200 mg/dL in a nonstressed, ambulatory subject supports the diagnosis of Diabetes Mellitus. Result Comment: [place] om Glucose Reference Range is dependent on time and content of last meal. Glucose of more than 200 mg/dL in a nonstressed, ambulatory subject supports the diagnosis of Diabetes Mellitus. ADA recommended reference range Performed By: #### R JONI [id number] #### [facility] [address] [place] [address] No Panel InformationOrdered By: Sara Gonzales on 04-27-2024 Estimated GFR (CKD-EPI) > 60.0 mL/Min [facility] Creatinine Clearance (Chem N/A [facility] Phosphate [Mass/volume] in S benton or PlasmaOrdered By: Sara Gonzales on 04-27-2024 Phosphate [Mass/Vol] 2.2 mg/dL Low 2.5-4.5 [facility] Comment on above: Performed By: #### R ENAL, [id number] #### [address] Potassium [Moles/volume] in Serum or PlasmaOrdered By: Sara Gonzales on 04-27-2024 Potassium [Moles/Vol] 4.1 mmol/L Normal 3.5-5.1 [facility] Comment on above: Performed By: #### R ENDIANNA [id number] #### [address] Renal Function Panelon 04-27 Albumin [Mass/Vol] 3.9 g/dL Normal 3.5-5.7 [facility] Comment on above: Performed By: #### Rosie QUINONES [id number] #### [address] GFR/1.73 sq M.predicted MDRD (S/P/Bld) [Vol rate/Area] mL/min/{1.73_m2} Normal [facility] Comment on above: Performed By: #### R JONI [id number] #### [address] Serum or plasma anion gap de terminationOrdered By: Sara Gonzales on 04-27-2024 Anion gap [Moles/Vol] 11.5 mmol/L Normal 6.0-15.0 [facility] Comment on above: Performed By: #### R JONI [id number] #### [place] [address] [place] Sodium [Moles/volume] in Ser um or PlasmaOrdered By: Sara Gonzales on 04-27-2024 Sodium [Moles/Vol] 142 mmol/L Normal 136-145 [facility] Comment on above: Performed By: #### R ENDIANNA [id number] #### [place] [address] [place] Urea nitrogen [Mass/volume] in Serum or PlasmaOrdered By: Sara Gonzales on 04-27-2024 Urea nitrogen [Mass/Vol] 14 mg/dL Normal 7-25 [facility] Comment on above: Performed By: #### R ENAL, [id number] #### [facility] [address] [place] [phone] [facility] Vitamin D 25 Hydroxy Totalon 04-27-2024 Vitamin D 25 Hydroxy Total 65.0 ng/mL Normal 30-100 [facility] Comment on above: Result Comment: ANN MIN D STATUS 25(OH)VITAMIN D RANGE (ng/mL) Deficient <20 Insufficient 20 to <30 Sufficient 30 to 100 Reference: Ki Hamilton, Arcenio GARCÍA et al. Evaluation,treatment, and prevention of vitamin D deficiency; an Endocrine Society clinical practice guideline. JCEM. 2010; 96(7):1911-30. PERFORMED BY: [place] [address] PATHOLOGIST CARE TRANSITIONS MANAGER JAYDE GARVIN M.D. Performed By: #### R ENAL, [id number] #### [place] [phone] [facility] Vitamin D+Metabolites [Mass/ volume] in Serum or PlasmaOrdered By: Sara Gonzales on 04-27-2024 Vitamin D+Metabolites [Mass/Vol] 65.0 ng/mL 30-100 [facility] Comment on above: VITAMIN D STATUS 25( OH)VITAMIN D RANGE (ng/mL) Deficient <20 Insufficient 20 to <30Sufficient 30 to 100Reference: Ki Hamilton, Arcenio GARCÍA, et al. Evaluation,treatment, and prevention of vitamin D deficiency; an Endocrine Society clinical practice guideline. JCEM. 2010; 96(7):1911-30. URINE CULTURE, ROUTINEon Bacteria identified Cx Nom (U) Urine Culture, Routine [facility] Bacteria identified Cx Nom (U) Mixed urogenital aleksandr [facility] Bacteria identified Cx Nom (U) 25,000-50,000 colony forming units per mL [facility] Bacteria identified Cx Nom (U) Performed at: [facility] Bacteria identified Cx Nom (U) [address] [place], [place] [phone] [facility] Bacteria identified Cx Nom (U) Aged Or Disabled Carer: Tarik Cardenas PhD, Phone: [phone] [facility] Albumin [Mass/volume] in Ser um or Plasma by Bromocresol green (BCG) dye binding methoOrdered By: Sara Gonzales on 10-28-2023 Albumin BCG dye [Mass/Vol] 4.2 g/dL 3.5-5.7 [facility] Calcium [Mass/volume] in Ser um or PlasmaOrdered By: Sara Gonzales on 10-28-2023 Calcium [Mass/Vol] 9.6 mg/dL Normal 8.6-10.3 [facility] Comment on above: Performed By: #### V [id number], RENAL #### [facility] [address] [place] [address] [place] Carbon dioxide, total [Moles /volume] in Serum or PlasmaOrdered By: Sara Gonzales on 10-28-2023 CO2 [Moles/Vol] 28.5 mmol/L Normal 21.0-31.0 [facility] Comment on above: Performed By: #### V [id number], RENAL #### [facility] [address] [place] [address] [place] Chloride [Moles/volume] in S benton or PlasmaOrdered By: Sara Gonzales on 10-28-2023 Chloride [Moles/Vol] 106 mmol/L Normal 98-107 [facility] Comment on above: Performed By: #### V [id number], RENAL #### [facility] [address] [place] [address] [place] Creatinine [Mass/volume] in Serum or PlasmaOrdered By: Sara Gonzales on 10-28-2023 Creatinine [Mass/Vol] 1.02 mg/dL Normal 0.60-1.20 [facility] Comment on above: Performed By: #### V [id number], RENAL #### [facility] [address] [place] [address] [place] Glucose [Mass/volume] in Ser um or PlasmaOrdered By: Sara Gonzales on 10-28-2023 Glucose [Mass/Vol] 123 mg/dL High 70-100 [facility] Comment on above: ADA recommended refe rence rangeRandom Glucose Reference Range is dependent on time and content of last meal. Glucose of more than 200 mg/dL in a nonstressed, ambulatory subject supports the diagnosis of Diabetes Mellitus. Result Comment: [place] om Glucose Reference Range is dependent on time and content of last meal. Glucose of more than 200 mg/dL in a nonstressed, ambulatory subject supports the diagnosis of Diabetes Mellitus. ADA recommended reference range Performed By: #### V [id number], RENAL #### [facility] [address] No Panel InformationOrdered By: Sara Gonzales on 10-28-2023 Estimated GFR (CKD-EPI) 55.614 mL/Min [facility] Creatinine Clearance (Chem N/A [facility] Phosphate [Mass/volume] in S benton or PlasmaOrdered By: Sara Gonzales on 10-28-2023 Phosphate [Mass/Vol] 2.8 mg/dL Normal 2.5-4.5 [facility] Comment on above: Performed By: #### V [id number], RENAL #### [address] Potassium [Moles/volume] in Serum or PlasmaOrdered By: Sara Gonzales on 10-28-2023 Potassium [Moles/Vol] 4.0 mmol/L Normal 3.5-5.1 [facility] Comment on above: Performed By: #### V [id number], RENAL #### [facility] [address] [place] [phone] [facility] Renal Function Panelon 10-27 Albumin [Mass/Vol] 4.2 g/dL Normal 3.5-5.7 [facility] Comment on above: Performed By: #### V [id number], RENAL #### [place] [address] [place] GFR/1.73 sq M.predicted MDRD (S/P/Bld) [Vol rate/Area] 55.614 mL/min/{1.73_m2} Normal [facility] Comment on above: Performed By: #### V [id number], RENAL #### [address] Serum or plasma anion gap de terminationOrdered By: Sara Gonzales on 10-28-2023 Anion gap [Moles/Vol] 9.5 mmol/L Normal 6.0-15.0 [facility] Comment on above: Performed By: #### V [id number], RENAL #### [address] Sodium [Moles/volume] in Ser um or PlasmaOrdered By: Sara Gonzales on 10-28-2023 Sodium [Moles/Vol] 140 mmol/L Normal 136-145 [facility] Comment on above: Performed By: #### V [id number], RENAL #### [address] Urea nitrogen [Mass/volume] in Serum or PlasmaOrdered By: Sara Gonzales on 10-28-2023 Urea nitrogen [Mass/Vol] 19 mg/dL Normal 7-25 [facility] Comment on above: Performed By: #### V [id number], RENAL #### [address] Vitamin D 25 Hydroxy Totalon 10-28-2023 Vitamin D 25 Hydroxy Total 96.8 ng/mL Normal 30-100 [facility] Comment on above: Result Comment: ANN MIN D STATUS 25(OH)VITAMIN D RANGE (ng/mL) Deficient <20 Insufficient 20 to <30 Sufficient 30 to 100 Reference: Kaylah MF,Ki NC, Arcenio GARCÍA, et al. Evaluation,treatment, and prevention of vitamin D deficiency; an Endocrine Society clinical practice guideline. JCEM. 2010; 96(7):1911-30. PERFORMED BY: [place] [address] PATHOLOGIST CARE TRANSITIONS MANAGER JAYDE GARVIN M.D. Performed By: #### V [id number], RENAL #### [address] Vitamin D+Metabolites [Mass/ volume] in Serum or PlasmaOrdered By: Sara Gonzales on 10-28-2023 Vitamin D+Metabolites [Mass/Vol] 96.8 ng/mL 30-100 [facility] Comment on above: VITAMIN D STATUS 25( OH)VITAMIN D RANGE (ng/mL) Deficient <20 Insufficient 20 to <30Sufficient 30 to 100Reference: Kaylah MF,Ki DEO, Arcenio GARCÍA, et al. Evaluation,treatment, and prevention of vitamin D deficiency; an Endocrine Society clinical practice guideline. JCEM. 2010; 96(7):1911-30. Calcium [Mass/volume] in Ser um or PlasmaOrdered By: Sara Gonzales on 04-24-2023 Calcium [Mass/Vol] 9.6 mg/dL 8.6-10.3 [facility] CBC AUTO DIFFon 11-19-2022 BASO # 0.0 103/ul Normal 0.0-0.1 [facility] Comment on above: Performed By: #### C BC #### [facility] [address] [place] [address] [address] Pillo Velez Basophils/100 WBC (Bld) 0.4 % Normal 0.2-2.0 [facility] Comment on above: Performed By: #### C BC #### [facility] [address] [place] [address] [address] Pillo Velez EO # 0.0 103/ul Normal 0.0-0.7 [facility] Comment on above: Performed By: #### C BC #### [facility] [address] [place] [address] [address] Pillo Velez Eosinophils/100 WBC (Bld) 0.1 % Critically low 0.9-7.0 [facility] Comment on above: Performed By: #### C BC #### [facility] [address] [place] [address] [address] Pillo Velez Erythrocyte distribution width (RBC) [Ratio] 12.8 % Normal 11.0-15.0 [facility] Comment on above: Performed By: #### C BC #### [facility] [address] [place] [address] Dr. Pillo Velez Hematocrit (Bld) [Volume fraction] 33.9 % Critically low 36.0-48.0 [facility] Comment on above: Performed By: #### C BC #### [facility] [address] [place] [address] Dr. Pillo Velez Hemoglobin (Bld) [Mass/Vol] 11.6 g/dL Critically low 12.0-16.0 [facility] Comment on above: Performed By: #### C BC #### [facility] [address] [place] [address] Dr. Pillo Velez IG # 0.02 10e3/ul Normal 0.00-0.03 [facility] Comment on above: Performed By: #### C BC #### [facility] [address] [place] [address] Dr. Pillo Velez IG % 0.3 % Normal 0.0-0.5 [facility] Comment on above: Performed By: #### C BC #### [facility] [address] [place] [address] Dr. Pillo Velez LYMPH # 1.4 103/ul Normal 1.2-3.8 [facility] Comment on above: Performed By: #### C BC #### [facility] [address] [place] [address] Dr. Pillo Velez Lymphocytes/100 WBC (Bld) 19.9 % Critically low 20.5-60.0 [facility] Comment on above: Performed By: #### C BC #### [facility] [address] [place] [address] Dr. Pillo Velez MANUAL DIFF REQ NO Normal [facility] Comment on above: Performed By: #### C BC #### [facility] [address] [place] [address] Dr. Pillo Velez MCH (RBC) [Entitic mass] 31.0 pg Normal 26.7-34.0 [facility] Comment on above: Performed By: #### C BC #### [facility] [address] [place] [address] Dr. Pillo Velez MCHC (RBC) [Mass/Vol] 34.2 g/dL Normal 29.9-35.2 [facility] Comment on above: Performed By: #### C BC #### [facility] [address] [place] [address] Dr. Pillo Velez MCV (RBC) [Entitic vol] 90.6 fL Normal 81.0-99.0 [facility] Comment on above: Performed By: #### C BC #### [facility] [address] [place] [address] Dr. Pillo Velez MONO # 0.3 103/ul Normal 0.3-0.8 [facility] Comment on above: Performed By: #### C BC #### [facility] [address] [place] [address] Dr. Pillo Velez Monocytes/100 WBC (Bld) 5.0 % Normal 1.7-12.0 [facility] Comment on above: Performed By: #### C BC #### [facility] [address] [place] [address] Dr. Pillo Velez NEUT # 5.1 103/ul Normal 1.4-6.5 [facility] Comment on above: Performed By: #### C BC #### [facility] [address] [place] [address] Dr. Pillo Velez Neutrophils/100 WBC (Bld) 74.3 % Normal 43.0-75.0 [facility] Comment on above: Performed By: #### C BC #### [facility] [address] [place] [address] Dr. Pillo Velez Platelet mean volume (Bld) [Entitic vol] 9.8 fL Normal 9.5-13.5 [facility] Comment on above: Performed By: #### C BC #### [facility] [address] [place] [address] Dr. Pillo Velez PLT 222 103/ul Normal 150-450 [facility] Comment on above: Performed By: #### C BC #### [facility] [address] [place] [address] Dr. Pillo Velez RBC 3.74 106/ul Critically low 4.20-5.40 [facility] Comment on above: Performed By: #### C BC #### [facility] [address] [place] [address] Dr. Pillo Velez WBC 6.9 103/ul Normal 4.0-11.0 [facility] Comment on above: Performed By: #### C BC #### [facility] [address] [place] [address] Dr. Pillo Velez ER URINE PROFILEon 3 Bilirubin Ql (U) Negative Normal NEGATIVE [facility] Comment on above: Performed By: #### E RUR #### [facility] [address] [place] [address] Dr. Pillo Velez Clarity (U) CLEAR Normal CLEAR [facility] Comment on above: Performed By: #### E RUR #### [facility] [address] [place] [address] Dr. Pillo Velez Color (U) LT. YELLOW Normal YELLOW [facility] Comment on above: Performed By: #### E RUR #### [facility] [address] [place] [address] Dr. Pillo GRIFFITHS A micrscopic examination will be performed if indicated. Normal [facility] Comment on above: Performed By: #### E RUR #### [facility] [address] [place] [address] Dr. Pillo Velez Glucose Ql (U) Negative Normal NEGATIVE [facility] Comment on above: Performed By: #### E RUR #### [facility] [address] [place] [address] Dr. Pillo Velez Hemoglobin Ql (U) Negative Normal NEGATIVE [facility] Comment on above: Performed By: #### E RUR #### [facility] [address] [place] [address] Dr. Pillo Velez Ketones Ql (U) 15 mg/dl Abnormal NEGATIVE [facility] Comment on above: Performed By: #### E RUR #### [facility] [address] [place] [address] Dr. Pillo Velez LEUKOCYTES Negative Normal NEGATIVE [facility] Comment on above: Performed By: #### E RUR #### [facility] [address] [place] [address] Dr. Pillo Velez Nitrite Ql (U) Negative Normal NEGATIVE [facility] Comment on above: Performed By: #### E RUR #### [facility] [address] [place] [address] Dr. Pillo Velez pH (U) 8.5 [pH] Normal 5-9 [facility] Comment on above: Performed By: #### E RUR #### [facility] [address] [place] [address] Dr. Pillo Velez SPEC GRAVITY 1.020 Normal 1.005-<=1.02 5 [facility] Comment on above: Performed By: #### E RUR #### [facility] [address] [place] [address] Dr. Pillo Velez UA PROTEIN Negative Normal NEGATIVE/ TRACE [facility] Comment on above: Performed By: #### E RUR #### [facility] [address] [place] [address] Dr. Pillo Velez UR MICRO IND NOT INDICATED Normal [facility] Comment on above: Performed By: #### E RUR #### [facility] [address] [place] [address] Dr. Pillo Velez Urobilinogen Qn (U) 0.2 {Neris'U}/dL Normal 0.2 - 1. 0 [facility] Comment on above: Performed By: #### E RUR #### [facility] [address] [place] [address] Dr. Pillo Velez LACTATE/LACTIC ACIDon 2022 Lactate [Moles/Vol] 1.9 mmol/L Normal 0.4-2.0 [facility] Comment on above: Performed By: #### L ACT #### [facility] [address] [place] [address] Dr. Pillo Velez PROF 14(COMP METB)on 023 Albumin [Mass/Vol] 3.4 g/dL Normal 3.4-5.0 [facility] Comment on above: Performed By: #### C MP, TSH, HSTROPN ####[facility] [address] [place] [address]Dr. Pillo Velez Albumin/Globulin [Mass ratio] 1.0 {ratio} Normal [facility] Comment on above: Performed By: #### C MP, TSH, HSTROPN ####[facility] [address] [place] [address]Dr. Pillo Velez ALP [Catalytic activity/Vol] 77 U/L Normal 46-116 [facility] Comment on above: Performed By: #### C MP, TSH, HSTROPN ####[facility] [address] [place], [place] [address]Dr. Linnick Velez ALT [Catalytic activity/Vol] 40 U/L Normal 14-59 [facility] Comment on above: Performed By: #### C MP, TSH, HSTROPN ####[facility] [address] [place] [address]Dr. Pillo Velez Anion gap [Moles/Vol] 13.1 mmol/L Normal [facility] Comment on above: Performed By: #### C MP, TSH, HSTROPN ####[facility] [address] [place] [address]Dr. Pillo Agustin AST [Catalytic activity/Vol] 36 U/L Normal 15-37 [facility] Comment on above: Performed By: #### C MP, TSH, HSTROPN ####[facility] [address] [place], [place] [address]Dr. Linnick Velez Bilirubin [Mass/Vol] 0.4 mg/dL Normal 0.2-1.0 [facility] Comment on above: Performed By: #### C MP, TSH, HSTROPN ####[facility] [address] [place] [address]Dr. Pillo Velez Calcium [Mass/Vol] 9.3 mg/dL Normal 8.5-10.1 [facility] Comment on above: Performed By: #### C MP, TSH, HSTROPN ####[facility] [address] [place] [address]Dr. Pillo Velez Chloride [Moles/Vol] 105 mmol/L Normal 98-107 [facility] Comment on above: Performed By: #### C MP, TSH, HSTROPN ####[facility] [address] [place] [address]Dr. Pillo Velez CO2 [Moles/Vol] 23.4 mmol/L Normal 21.0-32.0 [facility] Comment on above: Performed By: #### C MP, TSH, HSTROPN ####[facility] [address] [place] [address]Dr. Pillo Velez Creatinine [Mass/Vol] 0.82 mg/dL Normal 0.55-1.02 [facility] Comment on above: Performed By: #### C MP, TSH, HSTROPN ####[facility] [address] [place], [place] [address]Dr. Pillo Velez EGFR-AF BRITISH >60 Normal >=60 [facility] Comment on above: Performed By: #### C MP, TSH, HSTROPN ####[facility] [address] [place], [place] [address]Dr. Pillo Velez EGFR-NON AF BRITISH >60 Normal >=60 [facility] Comment on above: Performed By: #### C MP, TSH, HSTROPN ####[facility] [address] [place] [address]Dr. Pillo Velez Globulin (S) [Mass/Vol] 3.4 g/dL Normal [facility] Comment on above: Performed By: #### C MP, TSH, HSTROPN ####[facility] [address] [place] [address]Dr. Pillo Velez Glucose [Mass/Vol] 118 mg/dL Critically high 74-106 [facility] Comment on above: Performed By: #### C MP, TSH, HSTROPN ####[facility] [address] [place] [address]Dr. Pillo Velez Potassium [Moles/Vol] 3.5 mmol/L Normal 3.5-5.1 [facility] Comment on above: Performed By: #### C MP, TSH, HSTROPN ####[facility] [address] [place] [address]Dr. Pillo Velez Protein [Mass/Vol] 6.8 g/dL Normal 6.4-8.2 [facility] Comment on above: Performed By: #### C MP, TSH, HSTROPN ####[facility] [address] [place] [address]Dr. Pillo Velez Sodium [Moles/Vol] 138 mmol/L Normal 136-145 [facility] Comment on above: Performed By: #### C MP, TSH, HSTROPN ####[facility] [address] [place] [address]Dr. Pillo Velez Urea nitrogen [Mass/Vol] 13.0 mg/dL Normal 7.0-18.0 [facility] Comment on above: Performed By: #### C MP, TSH, HSTROPN ####[facility] [address] [place] [address]Dr. Pillo Velez Urea nitrogen/Creatinine [Mass ratio] 15.9 mg/mg Normal [facility] Comment on above: Performed By: #### C MP, TSH, HSTROPN ####[facility] [address] [place] [address]Dr. Pillo Velez TROPONIN, HIGH SENSITIVITYon 11-19-2022 HSTROP <4.0 Normal 4.0-51.3 [facility] Comment on above: Result Comment: CUT- OFF POINTS HAVE BEEN ESTABLISHED BASED ON THE FOURTH UNIVERSAL DEFINITIONS OF MYOCARDIAL INFARCTION. THE UPPER REFERENCE LIMIT (URL) OF TROPONIN, DEFINED THE 99TH PERCENTILE OF cTnI DISTRIBUTION IN A REFERENCE POPULATION, HAS BEEN CONFIRMED THE DECISION THRESHOLD FOR MS DIAGNOSIS. Performed By: #### C MP, TSH, HSTROPN ####[facility] [address] [place], [place] [address]Dr. Pillo Velez TSHon 11-19-2022 TSH 1.183 uIU/mL Normal 0.358-3.740 [facility] Comment on above: Performed By: #### C MP, TSH, HSTROPN ####[facility] [address] [place], [place] [address]PcTrista Velez XR CHEST 1 Von 11-19-2022 XR CHEST 1 V EXAMINATION: XR CHEST 1 V HISTORY: Asthenia , nausea, weakness COMPARISON: XR chest 07/06/2019 FINDINGS: LUNGS: No significant pulmonary parenchymal abnormalities. VASCULATURE: No increased pulmonary vasculature. PLEURA: No pneumothorax, effusion, or pleural thickening. CARDIAC: No cardiomegaly or cardiac silhouette abnormality. MEDIASTINUM: No visible mass or adenopathy. BONES: No fracture or visible bone lesion. OTHER: Negative. IMPRESSION: 1. No acute cardiopulmonary process. 2. Mild chronic interstitial changes. Electronically authenticated by: SONAM TYLER Date: 2022-11-19 14:52 Normal [facility] MRI IACS WO W CONon 10-13-19 MRI IACS WO W CON EXAM: MRI brain and internal auditory canals with and without contrast, 10/10/2022. HISTORY: Sensorineural hearing loss. COMPARISON: CT head without contrast, 02/26/2022. TECHNIQUE: Sagittal and axial T1, axial T2, FLAIR, diffusion, postcontrast axial T1 images obtained through the entire brain. High-resolution axial T2 and pre and postcontrast high-resolution axial and coronal T1 images obtained through the internal auditory canals. FINDINGS: Paranasal sinuses clear. Mastoid air cells clear. Nasopharynx normal. [employer] spaces normal. Orbital contents normal. Ventricles are normal in size. No hydrocephalus. 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 Mild brain atrophy. No significant signal abnormalities in the brain. No diffusion restriction. No acute ischemic infarction. Postcontrast images show no pathologic enhancement. No masses. There is no abnormal signal or pathologic enhancement in the internal auditory canals or inner ear structures. No cerebellopontine angle cisternal space mass. No pathologic cranial nerve enhancement. IMPRESSION: 1. Internal auditory canals and cerebellopontine angle cisternal spaces normal. 2. No acute infarction. No masses. Electronically authenticated by: ROBERT DELATORRE Date: 2022-10-12 15:40 Normal [facility] CREATININEon 10-10-2022 Creatinine [Mass/Vol] 1.01 mg/dL Normal 0.55-1.02 [facility] Comment on above: Performed By: #### C MEGHAN #### [facility] [address] [address] [address] Pillo Velez EGFR-AF BRITISH >60 Normal >=60 [facility] Comment on above: Performed By: #### C MEGHAN #### [facility] [address] [address] [address] Pillo Velez EGFR-NON AF BRITISH 53 mL/min/1.73m2 Critically low >=60 [facility] Comment on above: Performed By: #### C MEGHAN #### [facility] [address] [place] [address] Dr. Pillo Velez XR DEXA BONE DENSITYon 07-31 XR DEXA BONE DENSITY EXAMINATION: XR DEXA BONE DENSITY, 07/31/2022 10:22 AM EST HISTORY: Primary ovarian failure COMPARISON: DEXA bone densitometry 07/21/2020 TECHNIQUE: Dual-energy X-ray absorptiometry (DEXA) bone density study performed for the axial skeleton. FINDINGS: SPINE ANALYSIS: Average bone mineral density is 0.959 g/cm2. T-score (standard deviation relative to young adult mean): -1.8 . -3.3% change since prior study. HIP ANALYSIS: Lowest bone mineral density is within the right femur, 0.630 g/cm2. T-score (standard deviation relative to young adult mean): -3.0 . -4.9% change since prior study. IMPRESSION: World [employer] Classification: Osteoporosis - High Fracture Risk Electronically authenticated by: SONAM TYLER Date: 2022-07-31 11:54 Normal [facility] CBC AUTO DIFFon 02-26-2022 BASO # 0.0 103/ul Normal 0.0-0.1 [facility] Comment on above: Performed By: #### C BC #### [facility] [address] [place] [address] Dr. Pillo Velez Basophils/100 WBC (Bld) 0.4 % Normal 0.2-2.0 [facility] Comment on above: Performed By: #### C BC #### [facility] [address] [place] [address] Dr. Pillo Velez EO # 0.0 103/ul Normal 0.0-0.7 [facility] Comment on above: Performed By: #### C BC #### [facility] [address] [place] [address] Dr. Pillo Velez Eosinophils/100 WBC (Bld) 0.1 % Critically low 0.9-7.0 [facility] Comment on above: Performed By: #### C BC #### [facility] [address] [place] [address] Dr. Pillo Velez Erythrocyte distribution width (RBC) [Ratio] 12.6 % Normal 11.0-15.0 [facility] Comment on above: Performed By: #### C BC #### [facility] [address] [place] [address] Dr. Pillo Velez Hematocrit (Bld) [Volume fraction] 41.1 % Normal 36.0-48.0 [facility] Comment on above: Performed By: #### C BC #### [facility] [address] [place] [address] Dr. Pillo Velez Hemoglobin (Bld) [Mass/Vol] 13.6 g/dL Normal 12.0-16.0 [facility] Comment on above: Performed By: #### C BC #### [facility] [address] [place] [address] Dr. Pillo Velez IG # 0.03 10e3/ul Normal 0.00-0.03 [facility] Comment on above: Performed By: #### C BC #### [facility] [address] [place] [address] Dr. Pillo Velez IG % 0.3 % Normal 0.0-0.5 [facility] Comment on above: Performed By: #### C BC #### [facility] [address] [place] [address] Dr. Pillo Velez LYMPH # 2.0 103/ul Normal 1.2-3.8 [facility] Comment on above: Performed By: #### C BC #### [facility] [address] [address] [address] Pillo Velez Lymphocytes/100 WBC (Bld) 19.1 % Critically low 20.5-60.0 [facility] Comment on above: Performed By: #### C BC #### [facility] [address] [place] [address] Dr. Pillo Velez MANUAL DIFF REQ NO Normal [facility] Comment on above: Performed By: #### C BC #### [facility] [address] [place] [address] Dr. Pillo Velez MCH (RBC) [Entitic mass] 30.8 pg Normal 26.7-34.0 [facility] Comment on above: Performed By: #### C BC #### [facility] [address] [place] [address] Dr. Pillo Velez MCHC (RBC) [Mass/Vol] 33.1 g/dL Normal 29.9-35.2 [facility] Comment on above: Performed By: #### C BC #### [facility] [address] [place] [address] Dr. Pillo Velez MCV (RBC) [Entitic vol] 93.2 fL Normal 81.0-99.0 [facility] Comment on above: Performed By: #### C BC #### [facility] [address] [place] [address] Dr. Pillo Velez MONO # 0.5 103/ul Normal 0.3-0.8 [facility] Comment on above: Performed By: #### C BC #### [facility] [address] [place] [address] Dr. Pillo Velez Monocytes/100 WBC (Bld) 4.5 % Normal 1.7-12.0 [facility] Comment on above: Performed By: #### C BC #### [facility] [address] [place] [address] Dr. Pillo Velez NEUT # 8.1 103/ul Critically high 1.4-6.5 [facility] Comment on above: Performed By: #### C BC #### [facility] [address] [place] [address] Dr. Pillo Velez Neutrophils/100 WBC (Bld) 75.6 % Critically high 43.0-75.0 [facility] Comment on above: Performed By: #### C BC #### [facility] [address] [place] [address] Dr. Pillo Velez Platelet mean volume (Bld) [Entitic vol] 10.2 fL Normal 9.5-13.5 [facility] Comment on above: Performed By: #### C BC #### [facility] [address] [place] [address] Dr. Pillo Velez PLT 265 103/ul Normal 150-450 [facility] Comment on above: Performed By: #### C BC #### [facility] [address] [place] [address] Dr. Pillo Velez RBC 4.41 106/ul Normal 4.20-5.40 [facility] Comment on above: Performed By: #### C BC #### [facility] [address] [place] [address] Dr. Pillo Velez WBC 10.7 103/ul Normal 4.0-11.0 [facility] Comment on above: Performed By: #### C BC #### [facility] [address] [place] [address] HEAD WO CONon 02-26-2022 CT HEAD WO CON EXAMINATION: CT HEAD WO CON HISTORY: Nausea and vomiting COMPARISON: None. TECHNIQUE: CT examination of the head without IV contrast. Dose reduction techniques were achieved by using automated exposure control and/or adjustment of mA and/or kV according to patient size and/or use of iterative reconstruction technique. FINDINGS: The ventricles, sulci, and remaining CSF containing spaces maintain age-appropriate volume and symmetry. No herniation or hydrocephalus. The dorantes matter/white matter differentiation is maintained throughout. No CT evidence of contemporary infarction. No acute intracranial hemorrhage or parenchymal mass. The calvarium and skull base are intact. The pneumatized portions of the skull are clear. IMPRESSION: 1. No acute intracranial abnormality. Electronically authenticated by: ROGE CARR Date: 2022-02-26 08:42 Normal [facility] Covid-19 PCR (CVDTBH)on 02-08 SARS-CoV-2 (COVID-19) RNA JAYDEN+probe Ql (Unsp spec) Not detected Normal NOT DETECTED [facility] Comment on above: Result Comment: When diagnostic testing is negative, the possibility of a false negative should be considered in the context of a patient's recent exposures and the presence of clinical signs and symptoms consistent with SARS-CoV-2. This test is not yet approved or cleared by the [place] FDA. When there are no FDA-approved or cleared tests available, and other criteria are met, FDA can make tests available under an emergency access mechanism called an Emergency Use Authorization (EUA). The EUA for this test is supported by the Learning Administrator of Health and Human Service's declaration that circumstances exist to justify the emergency use of in vitro diagnostics for the detection and/or diagnosis of the virus that causes COVID-19. This EUA will remain in effect for the duration of the COVID-19 declaration justifying emergency of IVDs, unless it is terminated or revoked by the FDA (after which the test may no longer be used). Performed By: #### C VDTBH #### [facility] [address] [place] [address] Dr. Pillo Velez ER URINE PROFILEon 2 Bilirubin Ql (U) Negative Normal NEGATIVE [facility] Comment on above: Performed By: #### E RUR #### [facility] [address] [place] [address] Dr. Pillo Velez Clarity (U) CLEAR Normal CLEAR [facility] Comment on above: Performed By: #### E RUR #### [facility] [address] [place] [address] Dr. Pillo Velez Color (U) LT. YELLOW Normal YELLOW [facility] Comment on above: Performed By: #### E RUR #### [facility] [address] [place] [address] Dr. Plilo GRIFFITHS A micrscopic examination will be performed if indicated. Normal [facility] Comment on above: Performed By: #### E RUR #### [facility] [address] [place] [address] Dr. Pillo Velez Glucose Ql (U) Negative Normal NEGATIVE [facility] Comment on above: Performed By: #### E RUR #### [facility] [address] [place] [address] Dr. Pillo Velez Hemoglobin Ql (U) Negative Normal NEGATIVE [facility] Comment on above: Performed By: #### E RUR #### [facility] [address] [place] [address] Dr. Pillo Velez Ketones Ql (U) TRACE Abnormal NEGATIVE [facility] Comment on above: Performed By: #### E RUR #### [facility] [address] [place] [address] Dr. Pillo Velez LEUKOCYTES Negative Normal NEGATIVE [facility] Comment on above: Performed By: #### E RUR #### [facility] [address] [place] [address] Dr. Pillo Velez Nitrite Ql (U) Negative Normal NEGATIVE [facility] Comment on above: Performed By: #### E RUR #### [facility] [address] [place] [address] Dr. Pillo Velez pH (U) 8.5 [pH] Normal 5-9 [facility] Comment on above: Performed By: #### E RUR #### [facility] [address] [place] [address] Dr. Pillo Velez SPEC GRAVITY 1.015 Normal 1.005-<=1.02 5 [facility] Comment on above: Performed By: #### E RUR #### [facility] [address] [place] [address] Dr. Pillo Velez UA PROTEIN Negative Normal NEGATIVE/ TRACE [facility] Comment on above: Performed By: #### E RUR #### [facility] [address] [place] [address] Dr. Pillo Velez UR MICRO IND NOT INDICATED Normal [facility] Comment on above: Performed By: #### E RUR #### [facility] [address] [place] [address] Dr. Pillo Velez Urobilinogen Qn (U) 0.2 {Neris'U}/dL Normal 0.2 - 1. 0 [facility] Comment on above: Performed By: #### E RUR #### [facility] [address] [address] [address] Pillo Velez LIPASEon 02-26-2022 Lipase [Catalytic activity/Vol] 161.0 U/L Normal 73.0-393.0 [facility] Comment on above: Performed By: #### H STROPN, CMP, LIPA ####[facility] [address] [place] [address]DrTrista Velez PROF 14(COMP METB)on 022 Albumin [Mass/Vol] 3.6 g/dL Normal 3.4-5.0 [facility] Comment on above: Performed By: #### H STROPN, CMP, LIPA ####[facility] [address] [place] [address]DrTrista Velez Albumin/Globulin [Mass ratio] 0.9 {ratio} Normal [facility] Comment on above: Performed By: #### H STROPN, CMP, LIPA ####[facility] [address] [place] [address]Dr. Pillo Velez ALP [Catalytic activity/Vol] 93 U/L Normal 46-116 [facility] Comment on above: Performed By: #### H STROPN, CMP, LIPA ####[facility] [address] [place] [address]DrTrista Velez ALT [Catalytic activity/Vol] 28 U/L Normal 14-59 [facility] Comment on above: Performed By: #### H STROPN, CMP, LIPA ####[facility] [address] [place] [address]DrTrista Velez Anion gap [Moles/Vol] 15.9 mmol/L Normal [facility] Comment on above: Performed By: #### H STROPN, CMP, LIPA ####[facility] [address] [place] [address]DrTrista Velez AST [Catalytic activity/Vol] 19 U/L Normal 15-37 [facility] Comment on above: Performed By: #### H STROPN, CMP, LIPA ####[facility] [address] [place] [address]Dr. Pillo Velez Bilirubin [Mass/Vol] 0.5 mg/dL Normal 0.2-1.0 [facility] Comment on above: Performed By: #### H STROPN, CMP, LIPA ####[facility] [address] [place] [address]Dr. Pillo Velez Calcium [Mass/Vol] 9.7 mg/dL Normal 8.5-10.1 [facility] Comment on above: Performed By: #### H STROPN, CMP, LIPA ####[facility] [address] [place], [place] [address]Dr. Pillo Velez Chloride [Moles/Vol] 107 mmol/L Normal 98-107 [facility] Comment on above: Performed By: #### H STROPN, CMP, LIPA ####[facility] [address] [place], [place] [address]Dr. Pillo Velez CO2 [Moles/Vol] 20.6 mmol/L Critically low 21.0-32.0 [facility] Comment on above: Performed By: #### H STROPN, CMP, LIPA ####[facility] [address] [place], [place] [address]Dr. Pillo Velez Creatinine [Mass/Vol] 1.10 mg/dL Critically high 0.55-1.02 [facility] Comment on above: Performed By: #### H STROPN, CMP, LIPA ####[facility] [address] [place], [place] [address]Dr. Pillo Velez EGFR-AF BRITISH 58 mL/min/1.73m2 Critically low >=60 [facility] Comment on above: Performed By: #### H STROPN, CMP, LIPA ####[facility] [address] [place] [address]Dr. Pillo Velez EGFR-NON AF BRITISH 48 mL/min/1.73m2 Critically low >=60 [facility] Comment on above: Performed By: #### H STROPN, CMP, LIPA ####[facility] [address] [place] [address]Dr. Pillo Velez Globulin (S) [Mass/Vol] 3.8 g/dL Normal [facility] Comment on above: Performed By: #### H STROPN, CMP, LIPA ####[facility] [address] [place] [address]Dr. Pillo Velez Glucose [Mass/Vol] 125 mg/dL Critically high 74-106 [facility] Comment on above: Performed By: #### H STROPN, CMP, LIPA ####[facility] [address] [place] [address]Dr. Pillo Velez Potassium [Moles/Vol] 3.5 mmol/L Normal 3.5-5.1 [facility] Comment on above: Performed By: #### H STROPN, CMP, LIPA ####[facility] [address] [place] [address]Dr. Pillo Velez Protein [Mass/Vol] 7.4 g/dL Normal 6.4-8.2 [facility] Comment on above: Performed By: #### H STROPN, CMP, LIPA ####[facility] [address] [place], [place] [address]Dr. Pillo Velez Sodium [Moles/Vol] 140 mmol/L Normal 136-145 [facility] Comment on above: Performed By: #### H STROPN, CMP, LIPA ####[facility] [address] [place] [address]Dr. Pillo Velez Urea nitrogen [Mass/Vol] 19.0 mg/dL Critically high 7.0-18 .0 [facility] Comment on above: Performed By: #### H STROPN, CMP, LIPA ####[facility] [address] [place] [address]Dr. Pillo Velez Urea nitrogen/Creatinine [Mass ratio] 17.3 mg/mg Normal [facility] Comment on above: Performed By: #### H STROPN, CMP, LIPA ####[facility] [id number] [place] [address]Dr. Pillo Velez TROPONIN, HIGH SENSITIVITYon 02-26-2022 HSTROP <4.0 Normal 4.0-51.3 [facility] Comment on above: Result Comment: CUT- OFF POINTS HAVE BEEN ESTABLISHED BASED ON THE FOURTH UNIVERSAL DEFINITIONS OF MYOCARDIAL INFARCTION. THE UPPER REFERENCE LIMIT (URL) OF TROPONIN, DEFINED THE 99TH PERCENTILE OF cTnI DISTRIBUTION IN A REFERENCE POPULATION, HAS BEEN CONFIRMED THE DECISION THRESHOLD FOR MS DIAGNOSIS. Performed By: #### H STROPN, CMP, LIPA ####[facility] [id number] [place], [place] [address]Sb. Pillo Velez Q - N-TELOPEPTIDE,SERUMon N TELOPEPTIDE, SERUM 12.3 nM BCE Normal 6.2-19.0 [facility] [place] [facility] Comment on above: Order Comment: [facility] Testing performed at: [facility], [facility], [address] , [place], [address], [employer]: Dev Quiroga M.D. [facility] Collection Date/Time: [facility] Results Received Date/Time: [id number] [facility] Reported Date/Time: [id number] Performed By: #### 9 [id number] #### [facility] Default [address] [place] [address] Renal Function Panelon 12-10 Albumin [Mass/Vol] 4.3 g/dL Normal 3.6-5.1 Ceci mcneal [place] Vaccine Manager Comment on above: Performed By: #### R EN #### [facility] [address] [place], [place] [id number] Anion gap [Moles/Vol] 14 mmol/L Normal 12-20 Karthik dorsey [place] Vaccine Manager Comment on above: Result Comment: Effe ctive 08/16/2019 reference range changed. Performed By: #### R EN #### [facility] [address] [place], [place] [id number] Calcium [Mass/Vol] 9.6 mg/dL Normal 8.6-10.2 Ceci mcneal [place] Vaccine Manager Comment on above: Performed By: #### R EN #### [facility] [address] [place], [place] [id number] Chloride [Moles/Vol] 109 mmol/L High 98-107 [facility] Comment on above: Performed By: #### R EN #### [facility] [address] [place], [place] [id number] CO2 [Moles/Vol] 25 mmol/L Normal 20-31 [facility] Comment on above: Performed By: #### R EN #### [facility] [address] [place], [place] [id number] Creatinine [Mass/Vol] 0.9 mg/dL Normal 0.6-1.4 [facility] Comment on above: Performed By: #### R EN #### [facility] [address] [place], [place] [id number] eGFRAA 77 mL/min/1.73m2 Normal >60 [facility] Specialist Comment on above: Performed By: #### R EN #### [facility] [address] [place], [place] [id number] eGFRNAA 64 mL/min/1.73m2 Normal >60 [facility] Comment on above: Performed By: #### R EN #### [facility] [address] [place], [place] [id number] Glucose [Mass/Vol] 92 mg/dL Normal 65-99 [facility] Specialist Comment on above: Result Comment: For FASTING Glucose --- ADA reference ranges: Normal 65-99 mg/dl Prediabetes 100-125 Diabetes >/= 126 Performed By: #### R EN #### [facility] [address] [place], [place] [id number] Phosphate [Mass/Vol] 3.5 mg/dL Normal 2.2-4.4 [facility] Comment on above: Performed By: #### R EN #### [facility] [address] [place], [place] [id number] Potassium [Moles/Vol] 4.1 mmol/L Normal 3.5-5.5 [facility] Comment on above: Performed By: #### R EN #### [facility] [address] [place], [place] [id number] Sodium [Moles/Vol] 144 mmol/L Normal 135-146 [facility] Vaccine Manager Comment on above: Performed By: #### R EN #### [facility] [address] [place], [place] [id number] Urea nitrogen [Mass/Vol] 14 mg/dL Normal 7-25 [facility] Vaccine Manager Comment on above: Performed By: #### R EN #### [facility] [address] [place], [place] [id number] Vitamin D 25-OHon 12-10-2021 VIT D 25 OH 39 ng/ml Normal >29 [facility] Vaccine Manager Comment on above: Result Comment: Ann min D Status Deficiency <20 ng/mL Insufficiency 20-29 ng/mL Optimal 30-100 ng/mL Possible Toxicity >=150 ng/mL Performed By: #### V ITD #### [facility] [address] [place], [place] [id number] Vital Signs Date Time Vital Sign Value Performing Clinician Facility 07-26-2024 14:28-0500 Body mass index (BMI) [Ratio] 20.7 kg/m2 Sanjuana Hemmer PA Work Phone: [facility] 07-26-2024 14:28-0500 Body weight 59.06 kg Sanjuana Hemmer PA Work Phone: [facility] 07-26-2024 14:28-0500 Diastolic blood pressure 65 mm[Hg] Sanjuana Hemmer PA Work Phone: [facility] 07-26-2024 14:28-0500 Heart rate 99 /min Sanjuana Hemmer PA Work Phone: [facility] 07-26-2024 14:28-0500 Respiratory rate 16 /min Sanjuana Hemmer PA Work Phone: [facility] 07-26-2024 14:28-0500 SaO2% (BldA) [Mass fraction] 99 % Sanjuana Hemmer PA Work Phone: [facility] 07-26-2024 14:28-0500 Systolic blood pressure 105 mm[Hg] Sanjuana Hemmer PA Work Phone: [facility] 04-27-2024 14:03-0400 Diastolic blood pressure 69 mm[Hg] DRAFTER ASSISTANT-C Sanjuana Hemmer Work Phone: [facility] 04-27-2024 14:03-0400 Heart rate 106 /min DRAFTER ASSISTANT-C Sanjuana Hemmer Work Phone: [facility] 04-27-2024 14:03-0400 Systolic blood pressure 139 mm[Hg] DRAFTER ASSISTANT-C Sanjuana Hemmer Work Phone: [facility] 03-31-2024 10:07-0400 Body height 168.9 cm Sanjuana Hemmer PA Work Phone: [facility] 03-31-2024 10:07-0400 Body mass index (BMI) [Ratio] 20.73 kg/m2 Sanjuana Hemmer PA Work Phone: [facility] 03-31-2024 10:07-0400 Body temperature 98.6 [degF] Sanjuana Hemmer PA Work Phone: [facility] 03-31-2024 10:07-0400 Body weight 59.15 kg Sanjuana Hemmer PA Work Phone: [facility] 03-31-2024 10:07-0400 Diastolic blood pressure 84 mm[Hg] Sanjuana Hemmer PA Work Phone: [facility] 03-31-2024 10:07-0400 Heart rate 90 /min Sanjuana Hemmer PA Work Phone: [facility] 03-31-2024 10:07-0400 Respiratory rate 16 /min Sanjuana Hemmer PA Work Phone: [facility] 03-31-2024 10:07-0400 SaO2% (BldA) [Mass fraction] 98 % Sanjuana Hemmer PA Work Phone: [facility] 03-31-2024 10:07-0400 Systolic blood pressure 132 mm[Hg] Sanjuana Hemmer PA Work Phone: [facility] 10-28-2023 14:07-0400 Diastolic blood pressure 67 mm[Hg] II Tal Da Silva Work Phone: [facility] 10-28-2023 14:07-0400 Heart rate 96 /min II Tal Da Silva Work Phone: [facility] 10-28-2023 14:07-0400 Systolic blood pressure 129 mm[Hg] II Tal Da Silva Work Phone: [facility] 10-22-2022 13:43-0400 Body temperature 98.2 [degF] II Tal Da Silva Work Phone: [facility] 10-22-2022 13:43-0400 Respiratory rate 18 /min II Tal Da Silva Work Phone: [facility] 10-22-2022 13:43-0400 SaO2% (BldA) [Mass fraction] 95 % II Tal Da Silva Work Phone: [facility] Encounters Encounter Date Encounter Type Care Provider Facility Start: 07-26-2024 End: 07-26-2024 Patient encounter procedure Sanjuana COOK Work Phone: [facility] Comment on above: Medicare annual [facility] visit, subsequent (Primary Dx); ACP (advance care planning); Mild intermittent asthma without complication ([facility]/HCC); Other chronic pain; Stage 3a chronic kidney disease (HCC) (CMS/HCC); Neck pain; Polyp of colon, unspecified part of colon, unspecified type; Gastroesophageal reflux disease without esophagitis; Age-related osteoporosis without current pathological fracture (CMS/HCC); Primary ovarian failure; Vitamin D deficiency; Bilateral tinnitus; Chronic low back pain, unspecified back pain laterality, unspecified whether sciatica present; Mixed hyperlipidemia (CMS/HCC); Premature ventricular contraction on electrocardiogram; Sensorineural hearing loss (SNHL), bilateral; Impaired fasting glucose Start: 07-26-2024 End: 07-26-2024 ambulatory SANJUANA LORENZO Not Available Start: 07-26-2024 End: 07-26-2024 Bamboo flowsheet Sanjuana COOK Work Phone: [facility] Start: 07-26-2024 End: 07-26-2024 Bamboo flowsheet Sanjuana COOK Work Phone: [facility] Start: 04-27-2024 Registered Recurring DRAFTER ASSISTANT-Ravi Lorenzo Work Phone: [facility] - [facility]P Work Phone: Start: 04-27-2024 End: 04-27-2024 Patient encounter procedure DRAFTER ASSISTANT-Ravi Lorenzo Work Phone: [facility] [place] Work Phone: Start: 04-27-2024 End: 04-27-2024 ambulatory DRAFTER ASSISTANT-Ravi Lorenzo Work Phone: [facility] Work Phone: Start: 03-31-2024 End: 03-31-2024 Bamboo flowsheet Sanjuana Lorenzo PA Work Phone: [facility] Start: 03-31-2024 End: 03-31-2024 Bamboo flowsheet Sanjuana Lorenzo PA Work Phone: [facility] Start: 03-31-2024 End: 03-31-2024 Office outpatient visit 25 minutes Sanjuana Lorenzo PA Work Phone: [facility] Comment on above: SOB (shortness of br eath) (Primary Dx); Upper respiratory tract infection, unspecified type; Abnormal urinalysis; Acute bronchitis, unspecified organism; Mild intermittent asthma without complication ([facility]) Start: 03-31-2024 End: 03-31-2024 ambulatory SANJUANA LORENZO Not Available Start: 03-28-2024 Non-patient / Non-visit DRAFTER ASSISTANT-Ravi Lorenzo Work Phone: [facility] Work Phone: Start: 03-27-2024 End: 03-30-2024 Clinisync Result Encounter Generic External Data Provider [facility] Department Unsolicited Start: 03-27-2024 End: 03-30-2024 Clinisync Result Encounter Generic External Data Provider [facility] External Department Unsolicited Start: 01-21-2024 End: 01-21-2024 ambulatory SANJUANA LORENZO Not Available Start: 10-28-2023 Registered Recurring II Tal Da Silva Work Phone: [facility] Work Phone: Start: 10-28-2023 End: 10-28-2023 Patient encounter procedure II Tal Da Silva Work Phone: [facility] [place] Work Phone: Start: 10-28-2023 End: 10-28-2023 ambulatory II Tal Da Silva Work Phone: [facility] Work Phone: Start: 07-29-2023 End: 07-29-2023 ambulatory SANJUANA LORENZO Not Available Start: 04-24-2023 End: 04-24-2023 ambulatory II Tal Da Silva Work Phone: [facility] Work Phone: Start: 04-24-2023 End: 04-24-2023 Patient encounter procedure II Tal Da Silva Work Phone: [facility] [place] Work Phone: Start: 11-19-2022 End: 11-19-[address] SONAM TYLER Facility:[facility]1 Start: 11-17-2022 End: 11-17-2022 ambulatory JOHANNA Weston Facility:[facility] Start: 10-10-2022 End: 10-11-[address] TAL DA SILVA Facility:[facility] Start: 07-31-2022 End: 08-01-[address] TAL DA SILVA Facility:[facility] Start: 02-26-2022 End: 02-26-[address] TAL DA SILVA Facility:[facility] Procedures Date Procedure Procedure Detail Performing Clinician Start: 07-26-2024 Hemoglobin glycosyla onel a1c Sanjuana Lorenzo PA Work Phone: Start: 03-27-2024 Bacteria identified in Urine by Culture Generic External Data Provider Plan of Treatment Date Care Activity Detail Author Start: 07-26-2025 Medicare Annual Wellness (AWV) Medicare Annual Wellness (AWV) [facility] Start: 07-11-2025 End: 07-11-2025 Patient encounter procedure 07/11/2025 2:00 PM EST Office Visit [facility] [address] [place] [address] Sanjuana Lorenzo, PA [address] [place] [address] [facility] Start: 08-23-2024 End: 08-23-2024 Patient encounter procedure 08/23/2024 1:20 PM EST Office Visit [facility] [address] [place] [address] Sara Gonzales MD [address] [place] [address] [facility] Start: 07-26-2024 End: 07-26-2024 Patient encounter procedure 07/26/2024 2:30 PM EST Office Visit [facility] [address] [place] [address] Sanjuana Lorenzo PA [address] [place] [address] Arrived [facility] Comment on above: Arrived Start: 07-26-2024 End: 07-26-2025 25-hydroxyvitamin D3 [Mass/volume] in Serum or Plasma Vitamin D 25 hydroxy Total Lab Routine Medicare annual wellness visit, subsequent Vitamin D deficiency Expected: 07/26/2024 (Approximate), Expires: 07/26/2025 [facility] Comment on above: Expected: 07/26/2024 (Approximate), Expires: 07/26/2025 Start: 07-26-2024 End: 07-26-2025 CBC W Auto Differential panel - Blood CBC and differential Lab Routine Medicare annual wellness visit, subsequent Stage 3a chronic kidney disease (HCC) (CMS/HCC) Mixed hyperlipidemia (CMS/HCC) Expected: 07/26/2024 (Approximate), Expires: 07/26/2025 [facility] Work Phone: Comment on above: Expected: 07/26/2024 (Approximate), Expires: 07/26/2025 Start: 07-26-2024 End: 07-26-2025 Comprehensive metabolic 2000 panel - Serum or Plasma Comprehensive metabolic panel Lab Routine Medicare annual wellness visit, subsequent Stage 3a chronic kidney disease (HCC) (CMS/HCC) Mixed hyperlipidemia (CMS/HCC) Impaired fasting glucose Expected: 07/26/2024 (Approximate), Expires: 07/26/2025 [facility] Comment on above: Expected: 07/26/2024 (Approximate), Expires: 07/26/2025 Start: 07-26-2024 End: 07-26-2025 DXA Skeletal system Views for bone density DEXA bone density Imaging Routine Age-related osteoporosis without current pathological fracture (CMS/HCC) Primary ovarian failure Expected: 07/26/2024 (Approximate), Expires: 07/26/2025 [facility] Comment on above: Expected: 07/26/2024 (Approximate), Expires: 07/26/2025 Start: 07-26-2024 End: 07-26-2025 Lipid 1996 panel - Serum or Plasma Lipid panel Lab Routine Medicare annual wellness visit, subsequent Mixed hyperlipidemia (CMS/HCC) Expected: 07/26/2024 (Approximate), Expires: 07/26/2025 [facility] Comment on above: Expected: 07/26/2024 (Approximate), Expires: 07/26/2025 Start: 07-22-2024 Medicare Annual Wellness (AWV) Medicare Annual Wellness (AWV) [facility] Start: 07-22-2024 End: 07-22-2024 Patient encounter procedure 07/22/2024 11:30 AM EST Office Visit [facility] [address] [place] [phone] Sanjuana Lorenzo PA [address] [place] [address] [facility] Start: 04-11-2024 Influenza vaccination Influenza Vacc ine (#1) [facility] Start: 03-31-2024 End: 03-31-2024 Patient encounter procedure 03/31/2024 10:00 AM EDT Office Visit [facility] [address] [place] [address] Sanjuana Lorenzo, JOEY [address] [place] [address] Arrived [facility] Comment on above: Arrived Start: 04-24-2023 [facility] Start: 1951 Pneumococcal Vaccine : 65+ Years (1 of 2 - PCV) Pneumococcal Vaccine: 65+ Years (1 of 2 - PCV) [facility] Payers Date Payer Category Payer [facility] BCBS [id number] 2016 Unknown BCBS BCBS [id number] 2016-Present [phone] [place], [place] [id number] 2008 Medicare [id number] 1959 Medicare [id number] 1959 Unknown [id number] 1943 Unknown [id number] [id number] 1943 Unknown [id number] [id number] 1943 Unknown [id number]. [id number] 1943 Unknown [id number]. [id number] 1943 Unknown [id number] [id number] 1943 Unknown [id number]. 2.1259 1943 Unknown [id number]. [id number] 1943 Unknown [id number] [id number]. 2.1259 1943 Unknown [id number] [id number] Social History Date Type Detail [facility] Work Phone: Start: 1945 Sex Assigned At Female F [facility] Start: 02-17-2023 Tobacco smoking stat [facility] Never smoked tobacco [facility] Start: 02-17-2023 Tobacco use and exposure Smokeless tobacco non-user [facility] Start: 01-21-2024 End: 07-19-2024 Alcoholic beverage intake Ex-drinker (finding) [facility] Start: 07-22-2023 End: 03-31-2024 History of Social function [facility] Start: 07-22-2023 End: 03-31-2024 Tobacco use panel [facility] Start: 1945 Sex assigned at Not on file [facility] Goals Date Patient Goal Desired Activity /State History of Present illness Narrative 07-26-2024 JOEY Matos - 07/26/2024 2:30 PM EST Note Date & Type Note Facility 07-26-2024 History of Presen t illness Narrative Images from the original note were not included. Subjective Patient ID: Marixa Méndez is a 78 y.o. female who presents for Medicare Annual Wellness Visit Subsequent. Throat gets dry at times and nose gets a scab on the left side. Wants to know if she can use Flonase and what she can do to help the dry throat. Gets occasional neck pain. Goes to a chiropractor. States she is having a hard time switching insurance due to CKD diagnosis on her chart. Medicare Wellness Over the past 2 weeks, how often have you been bothered by any of the following problems? Little interest or pleasure in doing things: Not at all Feeling down, depressed, or hopeless: Not at all Patient Health Questionnaire-2 Score: 0 Over the past 2 weeks, how often have you been bothered by any of the following problems? Trouble falling or staying asleep, or sleeping too much: Not at all Feeling tired or having little energy: Not at all Poor appetite or overeating: Not at all Feeling bad about yourself - or that you are a failure or have let yourself or your family down: Not at all Trouble concentrating on things, such as reading the newspaper or watching television: Not at all Moving or speaking so slowly that other people could have noticed? Or the opposite - being so fidgety or restless that you have been moving around a lot more than usual.: Not at all Thoughts that you would be better off or hurting yourself in some way: Not at all Patient Health Questionnaire-9 Score: 0 Montesinos Fall Risk History of Falling, Immediate or Within 3 Months: No Health Risk Assessment Form Do you need help eating, bathing, using the toilet, dressing, or getting around your home?: No Can you prepare your own meals?: Yes Can you do your own housework without help?: Yes Can you shop for groceries or clothes without help?: Yes Do you exercise for about 20 minutes 3 or more days a week?: Yes How confident are you that you can control and manage most of your health problems?: Very confident Can you mange your money, credit cards and accounts, pay bills and taxes?: Yes Cognitive Screening Three Word Registration: , Mendy, Table Clock Drawing: Normal Clock - 2 Three Word Recall: 2/3 words correct - 2 Total Score (0-5 Points): 4 Pain Assessment Pain Score: 3 Advance Care Planning Do you have a living will?: Yes Do you have a medical power of energy attorney?: Yes Who is your medical power of energy attorney?: daughter stephanie Current Outpatient Medications on File Prior to Visit Medication Sig Dispense Refill albuterol HFA 90 mcg/act inhaler Inhale 2 puffs every 4 (four) hours if needed for wheezing 18 g 5 cholecalciferol (Vitamin D-3) 25 MCG (1000 UT) capsule Take 1 capsule by mouth Daily denosumab (Prolia) 60 MG/ML solution prefilled syringe Inject 60 mg under the skin 1 (one) time guaiFENesin (Mucinex) 600 MG 12 hr tablet Take 1,200 mg by mouth in the morning and 1,200 mg before bedtime. Do not crush, chew, or split.. Lutein 20 MG tablet Take 1 tablet by mouth in the morning. Multiple Vitamin (multivitamin) capsule Take 1 capsule by mouth in the morning. saccharomyces boulardii (Florastor) 250 MG capsule Take 250 mg by mouth 1 (one) time each day [DISCONTINUED] Fluticasone Furoate-Vilanterol (Breo Ellipta) 100-25 MCG/ACT aerosol powder Inhale 1 puff Daily 3 each 3 No current facility-administered medications on file prior to visit. I have reviewed and reconciled the history and medication list with the patient today. Allergies Allergen Reactions Penicillin G Hives and Rash Cephalexin Unknown Methylprednisolone Other Reaction(s): Bronchospasm Sulfa Antibiotics Other Reaction(s): nausea-sulfonamide abx Social History Tobacco Use Smoking status: Never Smokeless tobacco: Never Vaping Use Vaping status: Never Used Substance Use Topics Alcohol use: Not Currently Drug use: Never Family History Problem Relation Name Age of Onset Diabetes Mother Cancer Father Melanoma Neg Hx Past Medical History: Diagnosis Date Allergic Arthritis Asthma (CMS/HCC) Chronic kidney disease, stage III (moderate) (HCC) (CMS/HCC) Dizziness GERD (gastroesophageal reflux disease) 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 Islas CYSTOSCOPY 12/03/2018 Ureteral Dilation, Left Ureteral Biopsy, and Stent Placement DILATION AND CURETTAGE OF UTERUS 1997 Visit Vitals BP 105/65 Pulse 99 Resp 16 Wt 130 lb 3.2 oz SpO2 99% BMI 20.70 kg/m Smoking Status Never BSA 1.67 m Review of Systems Constitutional: Negative for chills, fatigue and fever. HENT: Negative for congestion, ear pain, rhinorrhea and sore throat. See HPI Eyes: Negative for pain, discharge and visual disturbance. Respiratory: Negative for cough, shortness of breath and wheezing. Cardiovascular: Negative for chest pain, palpitations and leg swelling. Gastrointestinal: Negative for abdominal pain, constipation, diarrhea, nausea and vomiting. Genitourinary: Negative for difficulty urinating, dysuria and frequency. Musculoskeletal: Positive for neck pain (Occasionally). Negative for arthralgias and back pain. Skin: Negative for rash. Neurological: Negative for dizziness and numbness. Psychiatric/Behavioral: Negative for sleep disturbance. The patient is not nervous/anxious. Objective Physical Exam Constitutional: General: She is not in acute distress. Appearance: Normal appearance. She is well-developed. HENT: Head: Normocephalic and atraumatic. Right Ear: Tympanic membrane and ear canal normal. Left Ear: Tympanic membrane and ear canal normal. Nose: Nose normal. Mouth/Throat: Mouth: Mucous membranes are moist. Pharynx: No posterior oropharyngeal erythema. Eyes: General: No scleral icterus. Extraocular Movements: Extraocular movements intact. Conjunctiva/sclera: Conjunctivae normal. Pupils: Pupils are equal, round, and reactive to light. Neck: Vascular: No carotid bruit. Cardiovascular: Rate and Rhythm: Normal rate and regular rhythm. Heart sounds: Normal heart sounds. No murmur heard. Pulmonary: Effort: Pulmonary effort is normal. No respiratory distress. Breath sounds: Normal breath sounds. No wheezing, rhonchi or rales. Abdominal: General: Bowel sounds are normal. There is no distension. Palpations: Abdomen is soft. Tenderness: There is no abdominal tenderness. There is no guarding. Musculoskeletal: General: No swelling or deformity. Normal range of motion. Cervical back: Normal range of motion and neck supple. No tenderness. Skin: General: Skin is warm and dry. Capillary Refill: Capillary refill takes less than 2 seconds. Findings: No rash. Neurological: General: No focal deficit present. Mental Status: She is alert and oriented to person, place, and time. Cranial Nerves: No cranial nerve deficit. Sensory: No sensory deficit. Motor: No weakness. Gait: Gait abnormal (Slow). Deep Tendon Reflexes: Reflexes normal. Psychiatric: Mood and Affect: Mood normal. Behavior: Behavior normal. Thought Content: Thought content normal. Judgment: Judgment normal. Office Visit on 07/26/2024 Component Date Value Ref Range Status Hemoglobin A1C 07/26/2024 5.0 Final Assessment & Plan 1. Medicare annual wellness visit, subsequent (Primary) Reviewed all relevant preventative screenings with the patient in detail. Medicare Wellness form completed and will be scanned into patient's chart. All needed testing was ordered. Will continue with yearly Medicare Wellness exams. - CBC and differential - Comprehensive metabolic panel - Lipid panel - Vitamin D 25 hydroxy Total 2. ACP (advance care planning) Patient willing to discuss ACP. Pt has Living Will and DPOA in place. 3. Mild intermittent asthma without complication ([facility]) Refill provided on Breo. Encouraged routine daily use, rinse mouth after use. Symptoms stable at this time. - Fluticasone Furoate-Vilanterol (Breo Ellipta) 100-25 MCG/ACT aerosol powder ; Inhale 1 puff Daily Dispense: 3 each; Refill: 3 4. Other chronic pain This is a chronic medical condition that is stable since last assessment. No changes in treatment are suggested at this time. 5. Stage 3a chronic kidney disease (HCC) ([facility]) Will recheck kidney function with upcoming labs. If kidney function is WNL can resolve diagnosis in patient's chart which would help her with her insurance. However, with most recent labs in March her EGFR was 52. Stay hydrated. - CBC and differential - Comprehensive metabolic panel 6. Neck pain Gentle heat, gentle stretching. Tylenol prn. Continue direct care staffer as needed. 7. Polyp of colon, unspecified part of colon, unspecified type This is a chronic medical condition that is stable since last assessment. No changes in treatment are suggested at this time. 8. Gastroesophageal reflux disease without esophagitis This is a chronic medical condition that is stable since last assessment. No changes in treatment are suggested at this time. 9. Age-related osteoporosis without current pathological fracture ([facility]) Dr Gonzales is managing this condition for the patient. Receiving Prolia injection. DEXA ordered. - DEXA bone density; Future 10. Primary ovarian failure This is a chronic medical condition that is stable since last assessment. No changes in treatment are suggested at this time. Will continue to monitor with routine DEXA scans. - DEXA bone density; Future 11. Vitamin D deficiency This is a chronic medical condition that is stable since last assessment. No changes in treatment are suggested at this time. Will continue to monitor with routine labs. - Vitamin D 25 hydroxy Total 12. Bilateral tinnitus The patient is seeing a medical receptionist medical assistant for this condition, treatment is deferred to that specialist. Correspondence from that specialist and any available testing were reviewed during today's visit. 13. Chronic low back pain, unspecified back pain laterality, unspecified whether sciatica present This is a chronic medical condition that is stable since last assessment. No changes in treatment are suggested at this time. Continue direct care staffer as needed. 14. Mixed hyperlipidemia (CMS/HCC) This is a chronic medical condition that is stable since last assessment. No changes in treatment are suggested at this time. Will continue to monitor with routine labs. - CBC and differential - Comprehensive metabolic panel - Lipid panel 15. Premature ventricular contraction on electrocardiogram This is a chronic medical condition that is stable since last assessment. No palpitations currently. 16. Sensorineural hearing loss (SNHL), bilateral The patient is seeing a medical receptionist medical assistant for this condition, treatment is deferred to that specialist. Correspondence from that specialist and any available testing were reviewed during today's visit. 17. Impaired fasting glucose Advised pt that her HgbA1c was normal today at 5.0. Continue to aim for healthy diet. No medications indicated at this time. Follow up in about 1 year (around 07/26/2025) for Medicare Wellness Visit. Sanjuana TOM PA-C documented in this encounter [facility] History of Present illness Narrative 03-31-2024 JOEY Matos - 03/31/2024 10:00 AM EDT Note Date & Type Note Facility 03-31-2024 History of Presen t illness Narrative Images from the original note were not included. Subjective Patient ID: Marixa Méndez is a 78 y.o. female who presents for [facility] ER follow up. Flowsheet Row Patient Outreach from 03/30/2024 in [facility] with Lou Friday, LABORER/GRADE CHECK Discharge Information ED, Hospital or Prison Facility Discharge? ED Patient has been contacted within 1 week of being seen in the ED Yes Discharge Date 03/27/24 Discharge Hospital [facility] Discharged To: Home Setting Engagement Call Start Time 1424 Medications Discharge medications reviewed and reconciled from hospital? Yes Is the patient having any side effects they believe may be caused by any medication additions or changes? No Does the patient have all medications ordered at discharge? Yes Is the patient taking all medications as directed (includes completed medication regime)? Yes Appointments Does the patient have a primary care provider? Yes Has the patient kept scheduled appointments due by today? Yes Self Management Patient Teaching Does the patient have access to their discharge instructions? Yes What is the patient's perception of their health status since discharge? Same Is the patient/caregiver able to teach back the hierarchy of who to call/visit for symptoms/problems? PCP, Specialist, Home Health nurse, Urgent Care, ED, 911 Yes Wrap Up Is the patient/caregiver familiar with Advance Care Planning? No Would the patient like more information on Advance Care Planning? No Call End Time 1440 Dx. UTI and URI, Rx'd Doxycycline 100 mg for 7 days. She has 2 more days of the ATB, she was feeling better until this morning, the UTI has improved but now she is SOB, weak and she has had this before and was given a Cortisone shot but does have a reaction to the cortisone so has to have benadryl with it too. The cortisone and benadryl was given IV in hospital. Daughter, Stephanie, is with patient today. States getting allergy attacks, feels weak, SOB, coughing. Doesn't feel that the inhaler helps much. Decreased appetite. Taking Benadaryl, children's dosing. Taking Guaifenesin twice a day. Current Outpatient Medications on File Prior to Visit Medication Sig Dispense Refill albuterol HFA 90 mcg/act inhaler Inhale 2 puffs every 4 (four) hours if needed for wheezing 18 g 5 doxycycline (Vibramycin) 100 MG capsule Take 100 mg by mouth in the morning and 100 mg before bedtime. Fluticasone Furoate-Vilanterol (Breo Ellipta) 100-25 MCG/ACT aerosol powder Inhale 1 puff Daily 3 each 3 guaiFENesin (Mucinex) 600 MG 12 hr tablet Take 1,200 mg by mouth in the morning and 1,200 mg before bedtime. Do not crush, chew, or split.. Lutein 20 MG tablet Take 1 tablet by mouth in the morning. Multiple Vitamin (multivitamin) capsule Take 1 capsule by mouth in the morning. saccharomyces boulardii (Florastor) 250 MG capsule Take 250 mg by mouth 1 (one) time each day No current facility-administered medications on file prior to visit. Allergies Allergen Reactions Cephalexin Unknown Methylprednisolone Other Reaction(s): Bronchospasm Penicillin G Hives Sulfa Antibiotics Other Reaction(s): nausea-sulfonamide abx Social History Tobacco Use Smoking status: Never Smokeless tobacco: Never Vaping Use Vaping status: Never Used Substance Use Topics Alcohol use: Not Currently Drug use: Never Family History Problem Relation Name Age of Onset Diabetes Mother Cancer Father Melanoma Neg Hx Past Medical History: Diagnosis Date Allergic Arthritis Asthma (CMS/HCC) Dizziness GERD (gastroesophageal reflux disease) HL (hearing loss) OA (osteoarthritis) Past Surgical History: Procedure Laterality Date CERVICAL POLYPECTOMY 1987 COLONOSCOPY W/ BIOPSIES AND POLYPECTOMY 2015 Dr. Islas CYSTOSCOPY 12/03/2018 Ureteral Dilation, Left Ureteral Biopsy, and Stent Placement DILATION AND CURETTAGE OF UTERUS 1997 Visit Vitals BP 132/84 Pulse 90 Temp 98.6 F Resp 16 Ht 5' 6.5 Wt 130 lb 6.4 oz SpO2 98% BMI 20.73 kg/m Smoking Status Never BSA 1.67 m Review of Systems Constitutional: Positive for appetite change and fatigue. Negative for chills and fever. Respiratory: Positive for cough and shortness of breath. Negative for wheezing. Cardiovascular: Negative for chest pain, palpitations and leg swelling. Gastrointestinal: Negative for abdominal pain, constipation, diarrhea, nausea and vomiting. Skin: Negative for rash. Neurological: Positive for weakness. Objective Physical Exam Constitutional: General: She is not in acute distress. Appearance: She is well-developed. She is ill-appearing. HENT: Head: Normocephalic and atraumatic. Eyes: General: No scleral icterus. Conjunctiva/sclera: Conjunctivae normal. Cardiovascular: Rate and Rhythm: Normal rate and regular rhythm. Heart sounds: Normal heart sounds. No murmur heard. Pulmonary: Effort: Pulmonary effort is normal. No respiratory distress. Breath sounds: No wheezing, rhonchi or rales. Comments: Harsh lung sounds throughout Skin: General: Skin is warm and dry. Neurological: General: No focal deficit present. Mental Status: She is alert and oriented to person, place, and time. Gait: Gait abnormal. Comments: Gait is slow, steady Psychiatric: Mood and Affect: Mood normal. Behavior: Behavior normal. Assessment/Plan Diagnoses and all orders for this visit: SOB (shortness of breath) Can continue albuterol as needed. Upper respiratory tract infection, unspecified type Encouraged pt to drink a protein shake at least once a day to help get her the necessary calories to heal. Stay hydrated, get plenty of rest. Abnormal urinalysis Findings on UA in ER were mild. Finish Doxycycline as prescribed. Acute bronchitis, unspecified organism - predniSONE (Deltasone) 10 MG tablet; Take 1 tablet (10 mg) by mouth 2 (two) times a day for 5 days, THEN 1 tablet (10 mg) Daily for 5 days. Take with food. Finish Doxycycline as prescribed. Encouraged pt to take the steroid with food. Take Benadryl 25 mg with the Prednisone dosage. She has taken low dose Prednisone in the past and is able to tolerate it if she takes Benadryl. Reminded pt that Benadryl can cause drowsiness. Contact office if symptoms do not improve over the next week. Advised her recovery will be gradual, but her vitals are stable at this time. Mild intermittent asthma without complication (CMS/HCC) Continue Breo inhaler routinely and Albuterol as needed. The patient was seen today in follow up of recent hospital ER visit. All available hospital records/labs/diagnostics were reviewed and discussed with the patient. ER discharge meds were reviewed. Any changes to plan are noted above. Follow up for Appointment As Scheduled. documented in this encounter [facility] Evaluation note Note Date & Type Note Facility Evaluation note No assessment information [facility] Work Phone: Evaluation note Note Date & Type Note Facility Evaluation note Diagnosis Medicare annual wellness visit, subsequent- Primary ACP (advance care planning) Other specified counseling Mild intermittent asthma without complication (CMS/HCC) Other chronic pain Stage 3a chronic kidney disease (HCC) (CMS/HCC) Neck pain Cervicalgia Polyp of colon, unspecified part of colon, unspecified type Gastroesophageal reflux disease without esophagitis Esophageal reflux Age-related osteoporosis without current pathological fracture (CMS/HCC) Primary ovarian failure Other ovarian failure Vitamin D deficiency Bilateral tinnitus Chronic low back pain, unspecified back pain laterality, unspecified whether sciatica present Mixed hyperlipidemia (CMS/HCC) Mixed hyperlipidemia Premature ventricular contraction on electrocardiogram Sensorineural hearing loss (SNHL), bilateral Impaired fasting glucose documented in this encounter [facility] Evaluation note Note Date & Type Note Facility Evaluation note Diagnosis SOB (shortness of breath)- Primary Shortness of breath Upper respiratory tract infection, unspecified type Abnormal urinalysis Other nonspecific finding on examination of urine Acute bronchitis, unspecified organism Mild intermittent asthma without complication (CMS/HCC) documented in this encounter [facility] Summary Purpose Family History No Family History Records FoundNo Family History Records FoundNo Family History Records FoundNo Family History Records FoundNo Family History Records Found Advance Directives No Advanced Directives Records Found Advance Directive Response Recorded Date/ Time Advance Directives No October 21 023 9:50am Chief Complaint and Reason for Visit Chief Complaint m81.0;E55.9 Chief Complaint e55.9 m81.0 z79.83 n 18.3 M81.0 Chief Complaint M81.0 E55.9 M81.0 Additional Source Comments INFORMATION SOURCE (unrecogn ized section and content) DATE CREATED AUTHOR 12/21/2021 [facility] dical Specialist DATE CREATED AUTHOR AUTHOR'S ORGANIZ ATION 11/21/2022 [facility] pital DATE CREATED AUTHOR AUTHOR'S ORGANIZ ATION 04/29/2024 [facility] DATE CREATED AUTHOR AUTHOR'S ORGANIZ ATION 07/28/2024 [facility] dical Specialists EPIC DATE CREATED AUTHOR AUTHOR'S ORGANIZ ATION 08/01/2024 [facility] Care Teams (unrecognized sec tion and content) Team Status: Active Member Role Status Dates Tal Da Silva II MD Primary Care Provider Active Team Status: Inactive Member Role Status Dates Tal Da Silva II MD Primary Care Provider Active Sara Gonzales MD Attending Provider Active Team Status: Inactive Member Role Status Dates Tal Da Silva II MD Primary Care Provider Active Start: October 28, 2023 End: October 28, 2023 Sara Gonzales MD Attending Provider Active Sta rt: October 28, 2023 End: October 28, 2023 Team Status: Active Member Role Status Dates Tal Da Silva II MD Primary Care Provider Active Start: October 28, 2023 Sara Gonzales MD Attending Provider, Referring Provider Active Start: October 28, 2023 Team Status: Active Member Role Status Dates JAE Marie Primary Care Provider Active Team Status: Active Member Role Status Dates Tal Da Silva II MD Primary Care Provider Active Start: March 28, 2024 Mervin Morales DO Attending Provider Active Sta rt: March 28, 2024 Team Status: Inactive Member Role Status Dates Sara Gonzales MD Attending Provider Active Sta rt: April 27, 2024 End: April 27, 2024 JAE Marie Primary Care Provider Active Start: April 27, 2024 End: April 27, 2024 Team Status: Active Member Role Status Dates Sara Gonzales MD Attending Provider, Referring Provider Active Start: April 27, 2024 JAE Marie Primary Care Provider Active Start: April 27, 2024 Distributing Clerk Relationship Specialty Start Date End Date Tal Da Silva MD [address] [place] [address] PCP - ACO Reach 01/02/23 Tal Da Silva MD [address] [place] [address] PCP - General Internal Medicine 02/13/23 Distributing Clerk Relationship Specialty Start Date End Date Tal Da Silva MD [address] [place] [address] PCP - ACO Reach 01/02/23 Tal Da Silva MD [address] [place] [address] PCP - General Internal Medicine 02/13/23 Distributing Clerk Relationship Specialty Start Date End Date Tal Da Silva MD [address] [place] [address] PCP - ACO Reach 01/02/23 Tal Da Silva MD [address] [place] [address] PCP - General Internal Medicine 02/13/23 Distributing Clerk Relationship Specialty Start Date End Date Tal Da Silva MD [address] [facility] [address] [place] [address] PCP - ACO Reach 01/02/23 Tal Da Silva MD [address] [facility] [address] [place] [address] PCP - General Internal Medicine 02/13/23 Distributing Clerk Relationship Specialty Start Date End Date Tal Da Silva MD [address] [facility] [address] [place] [address] PCP - ACO Reach 01/02/23 Tal Da Silva MD [address] [facility] [address] [place] [address] PCP - General Internal Medicine 02/13/23 Goals (unrecognized section and content) Goals may be documented in a n alternate section Reason for Visit (unrecogniz ed section and content) Reason Comments Medicare Annual Wellness Visit Subsequen t FOR RECORDS PERTAINING TO PATIENTS WHO ARE OR HAVE BEEN ENROLLED IN A CHEMICAL DEPENDENCY/SUBSTANCEABUSE PROGRAM, SOME INFORMATION MAY BE OMITTED. This clinical summary was aggregated from multiple sources. Caution should be exercised in using it in the provision of clinical care. This summary normalizes information from multiple sources, and as a consequence, information in this document may materially change the coding, format and clinical context of patient data. In addition, data may be omitted in some cases. CLINICAL DECISIONS SHOULD BE BASED ON THE PRIMARY CLINICAL RECORDS. [employer] provides no warranty or guarantee of the accuracy or completeness of information in this document.
--- NOTE | 2024-08-13 10:11 | XR_ITS ---
[address] [address] Patient Name: ABIOLA VILLEGAS MRN: [id number] date: 1945 Sex: F Assigned Patient Location: [facility] Current Patient Location: Accession/Order Number: [id number] Exam Date: 08/13/2024 10:18 Report Date: 08/15/2024 01:54 At the request of: SHI LORENZO Procedure: XR DEXA axial skeleton EXAMINATION: XR DEXA axial skeleton HISTORY: Age Related Osteoporosis COMPARISON: DEXA bone densitometry 07/31/2022 TECHNIQUE: Dual-energy X-ray absorptiometry (DXA) was performed. FINDINGS: SPINE ANALYSIS: Average bone mineral density is 0.953 g/cm2. T-score (standard deviation relative to young adult mean): -1.8 . +4.0% change since prior study. HIP ANALYSIS: Lowest bone mineral density is within the right femoral neck, 0.628 g/cm2. T-score (standard deviation relative to young adult mean): -3.0 . -0.6% change since prior study. XR/XR DEXA axial skeleton IMPRESSION: World Health Organization Classification: Osteoporosis - High Fracture Risk FRAX: Cannot calculate. Pharmacologic treatment recommendations * No uniform recommendation applies to all patients. Management plans must be individualized. * Consider initiating pharmacologic treatment in postmenopausal women and men >= 50 years of age who have the following: Primary fracture prevention: * T-score <= - 2.5 at the femoral neck, total hip, lumbar spine, 33% radius (some uncertainty with existing data) by DXA. * Low bone mass (osteopenia: T-score between - 1.0 and - 2.5) at the femoral neck or total hip by DXA with a 10-year hip fracture risk >= 3% or a 10-year major osteoporosis-related fracture risk >= 20% (i.e., clinical vertebral, hip, forearm, or proximal humerus) based on the [place]-adapted FRAXregistered model. Secondary fracture prevention: * Fracture of the hip or vertebra regardless of BMD [4, 5]. * Fracture of proximal humerus, pelvis, or distal forearm in persons with low bone mass (osteopenia: T-score between - 1.0 and - 2.5). The decision to treat should be individualized in persons with a fracture of the proximal humerus, pelvis, or distal forearm who do not have osteopenia or low BMD [12, 13]. Elle MS, Catarino SL, Lino KL, Deandre EM, Fernandez KG, AJ, Praveen ES. The clinician's guide to prevention and treatment of osteoporosis. Osteoporos Int. 2021;33(10):2320-3332. doi: 10.1007/z30911-116-16231-k. Epub 2021Dec 06. Erratum in: Osteoporos Int. 2021Mar 07;: PMID: [id number]; PMCID: [id number]. Electronically authenticated by: SONAM TYLER Date: 08/15/2024 01:54
== END 2024-08-13 10:07 | disposition home or self-care (01) ==
LOC: RAD 10:07
PROVIDERS: PCP Internal Medicine; Visit Provider Physician Assistant
DX: M81.0 Age-related osteoporosis without current pathological fracture (principal); E28.39 Other primary ovarian failure
CPT/HCPCS: 77080

== ENCOUNTER 2025-04-29 12:46 | Outpatient (RCR) | payer MEDICARE, BC, SELFPAY ==
[2025-04-29 13:04] VITALS: BP 148/81; PULSE 90; TEMP 36.4; O2SAT 95
[2025-04-29] MEDS: DENOSUMAB 60 MG/ML SYRINGE SUBQ (13:26)
== END 2025-05-10 23:59 | disposition home or self-care (01) ==
LOC: INF 12:46
PROVIDERS: PCP Internal Medicine; Visit Provider Internal Medicine
DX: M81.0 Age-related osteoporosis without current pathological fracture (principal)
CPT/HCPCS: 96372; J0897